=== PATIENT | male | born 1965 | race African-American/Black ===

== ENCOUNTER 2017-07-04 11:41 | Inpatient (IN) | payer OTHER ==
[2017-07-04 13:34] VITALS: BMI 19.5
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
[2017-07-04] MEDS ORDERED: IBUPROFEN 400 MG TABLET (FP) PO PRN (15:58)
[2017-07-04] MEDS ORDERED: MAGNESIUM HYDROX 2400MG/30ML ORAL SUSPENSION 30 ML CUP PO PRN (15:58)
[2017-07-04] MEDS ORDERED: hydrOXYzine PAMOATE 25 MG CAPSULE (FP) PO PRN (15:58)
[2017-07-04] MEDS ORDERED: MENTHOL/PHENOL 1 EACH UD MM PRN (15:58)
[2017-07-04] MEDS ORDERED: P-EPHED 60MG/TRIPROLIDI 2.5MG TABLET PO PRN (15:58)
[2017-07-04] MEDS ORDERED: guaiFENesin/D-METHORPHAN HB 10 ML UNIT-DOSE CUPS PO PRN (15:58)
[2017-07-04] MEDS ORDERED: MAGNESIUM CITRATE 300 ML BOTTLE PO PRN (15:58)
[2017-07-04] MEDS ORDERED: MAG HYDROX/AL HYDROX/SIMETH 30 ML UNIT-DOSE CUP PO PRN (15:58)
[2017-07-04] MEDS ORDERED: ALBUTEROL SO4 18 GM HFA INHALER IH PRN (16:06)
--- NOTE | 2017-07-04 16:10 | PN ---
BHS Progress Note Note: patient is non compliance with medication for hiv
[2017-07-04] MEDS ORDERED: METHADONE HCL 10 MG TABLET (FOR DETOX USE ONLY) PO ONE ×2 (16:30→23:00)
[2017-07-04] MEDS: diazePAM 5 MG TABLET PO PRN ×2 (17:03→22:32)
[2017-07-04] MEDS: THIAMINE HCL 100 MG TABLET (FP) PO SCH (22:30)
[2017-07-04 23:51] LABS: URINE APPEARANCE CLEAR; URINE BILIRUBIN NEGATIVE (NEGATIVE); URINE BLOOD NEGATIVE (NEGATIVE); URINE GLUCOSE (UA) 1+ (NEGATIVE); URINE KETONE NEGATIVE (NEGATIVE); URINE LEUK ESTERASE TRACE (NEGATIVE); URINE NITRITE NEGATIVE (NEGATIVE); URINE UROBILINOGEN 4.0 E.U/dl mg/dL (0.2-1.0)
[2017-07-04 23:52] LABS: URINE PROTEIN 1+ (NEGATIVE)
[2017-07-04 23:54] LABS: URINE COLOR YELLOW
[2017-07-04 23:56] LABS: EPI CELLS RARE /HPF (FEW); URINE MUCUS RARE
[2017-07-05] MEDS: ACETAMINOPHEN 325 MG TABLET (FP) PO PRN (05:32)
--- NOTE | 2017-07-05 09:14 | CONSULT ---
[facility] Psychiatric Consult - Data Date of interview: 07/05/17 Admission source: [facility] Identifying data: Pt. is a 51 year old single male, father of two, disabled, and homeless. This is patient's first admission to rehab. Pt. admitted to for opiate and cocaine dependence. Substance Abuse History: Following information confirmed with Mr. Shaw: Smoking Cessation. Smoking history: Current every day smoker. Have you smoked in the past 12 months: Yes. Aproximately how many cigarettes per day: 5. Hx Chewing Tobacco Use: No. Initiated information on smoking cessation: Yes. ' Breaking Loose' booklet given: 07/04/17. - Substance & Tx. History. Hx Alcohol Use: No. Hx Substance Use: Yes. Substance Use Type: Cocaine, Heroin. Hx Substance Use Treatment: Yes ([facility] 04/29 not completed). - Substances Abused. Heroin. Route: Injection. Frequency: Daily. Amount used: 7 bags. Age of first use: 20. Date of Last Use: 07/03/17. Crack. Route: Smoking. Frequency: 1-2 times per week. Amount used: $25. Age of first use: 20. Date of Last Use: 07/03/17 Medical History: Asthma, Hep C, and HIV Psychiatric History: Pt. denies h/o psychiatric hospitalization, suicide attempts, and outpatient care. Pt. c/o insomnia. Physical/Sexual Abuse/Trauma History: Denies. Mental Status Exam - Mental Status Exam Alert and Oriented to: Time, Place, Person Cognitive Function: Good Patient Appearance: Well Groomed Mood: Euthymic Affect: Mood Congruent Patient Behavior: Appropriate, Cooperative Speech Pattern: Appropriate Voice Loudness: Normal Thought Process: Goal Oriented Thought Disorder: Not Present Hallucinations: Denies Suicidal Ideation: Denies Homicidal Ideation: Denies Insight/Judgement: Poor Sleep: Poorly Appetite: Poor Muscle strength/Tone: Normal Gait/Station: Other (Did not observe patient's gait.) Psychiatric Findings - Problem List ([place] 1, 2,3) (1) Cocaine dependence, uncomplicated Current Visit: Yes Status: Acute (2) Nicotine dependence Current Visit: Yes Status: Acute (3) Opioid dependence with withdrawal Current Visit: Yes Status: Acute (4) Insomnia Current Visit: Yes Status: Acute - Initial Treatment Plan Initial Treatment Plan: Psychoeducation provided. Detoxification in progress. Ambien 10mg qhs ordered. Benefits and side effects (sleep walking) discussed. Verbal consent given. Will continue to monitor.
[2017-07-05] MEDS ORDERED: METHADONE HCL 10 MG TABLET (FOR DETOX USE ONLY) PO ONE (10:00)
[2017-07-05 10:14] LABS: HEMATOCRIT 30.8 % (35.4-49); HEMOGLOBIN 9.7 GM/dL (11.7-16.9); MCH 23.4 pg (25.7-33.7); MCHC 31.6 g/dl (32.0-35.9); MEAN CELL VOLUME 74.1 fl (80-96); MEAN PLT VOLUME 8.7 fl (7.5-11.1); PLATELET COUNT 218 K/MM3 (134-434); RBC 4.16 M/mm3 (4.00-5.60); RDW 15.7 % (11.9-15.9); WHITE BLOOD COUNT 2.6 K/mm3 (4.0-10.0)
[2017-07-05] MEDS: PRENATAL VITAMINS W/ FOLIC ACID TABLET (FP) PO SCH (10:16)
[2017-07-05 10:18] LABS: CHLORIDE 108 mmol/L (98-107); POTASSIUM 3.8 mmol/L (3.5-5.1); SODIUM 139 mmol/L (136-145)
[2017-07-05] MEDS: diazePAM 5 MG TABLET PO PRN ×2 (10:18→17:28)
[2017-07-05 10:46] LABS: ALK PHOS 157 U/L (45-117); ANION GAP 7 (8-16); BILIRUBIN,TOTAL 0.7 mg/dL (0.2-1.0); BLOOD UREA NITROGEN 11 mg/dL (7-18); CALCIUM 7.8 mg/dL (8.5-10.1); CO2 24 mmol/L (21-32); CREATININE 0.7 mg/dL (0.7-1.3); GLUCOSE,RANDOM 155 mg/dL (74-106); SGOT/AST 37 U/L (15-37); SGPT/ALT 29 U/L (12-78); TOT PROT 7.4 g/dl (6.4-8.2)
--- NOTE | 2017-07-05 14:57 | PN ---
S COWS - Scale Resting Pulse: 0= [place] 80 or Below Sweatin= Chills/Flushing Restless Observation: 3= Extraneous Movement Pupil Size: 0= Normal to Room Light Bone or Joint Aches: 4=Acute Joint/Muscle Pain Runny Nose/ Eye Tearin= Nasal Congestion GI Upset > 30mins: 0= None Tremor Observation of Outstretched Hands: 1= Tremor [place], Not Seen Yawning Observation: 1= 1-2x During Session Anxiety or Irritability: 2=Irritable/Anxious Goose Flesh Skin: 0=Smooth Skin COWS Score: 13 S Progress Note (SOAP) Subjective: ANXIETY,SWEATS,CHILLS. Objective: 07/05/17 14:53 Vital Signs Temperature 97.5 F L 07/05/17 13:26 Pulse Rate 73 07/05/17 13:26 Respiratory Rate 18 07/05/17 13:26 Blood Pressure 98/57 07/05/17 13:26 O2 Sat by Pulse Oximetry (%) Laboratory Last Values WBC 2.6 K/mm3 (4.0-10.0) L 07/05/17 07:00 RBC 4.16 M/mm3 (4.00-5.60) 07/05/17 07:00 Hgb 9.7 GM/dL (11.7-16.9) L 07/05/17 07:00 Hct 30.8 % (35.4-49) L 07/05/17 07:00 MCV 74.1 fl (80-96) L 07/05/17 07:00 MCH 23.4 pg (25.7-33.7) L 07/05/17 07:00 MCHC 31.6 g/dl (32.0-35.9) L 07/05/17 07:00 RDW 15.7 % (11.9-15.9) 07/05/17 07:00 Plt Count 218 K/MM3 (134-434) 07/05/17 07:00 MPV 8.7 fl (7.5-11.1) 07/05/17 07:00 Sodium 139 mmol/L (136-145) 07/05/17 07:00 Potassium 3.8 mmol/L (3.5-5.1) 07/05/17 07:00 Chloride 108 mmol/L (98-107) H 07/05/17 07:00 Carbon Dioxide 24 mmol/L (21-32) 07/05/17 07:00 Anion Gap 7 (8-16) L 07/05/17 07:00 BUN 11 mg/dL (7-18) 07/05/17 07:00 Creatinine 0.7 mg/dL (0.7-1.3) 07/05/17 07:00 Creat Clearance w eGFR > 60 (>60) 07/05/17 07:00 Random Glucose 155 mg/dL (74-106) H 07/05/17 07:00 Calcium 7.8 mg/dL (8.5-10.1) L 07/05/17 07:00 Total Bilirubin 0.7 mg/dL (0.2-1.0) 07/05/17 07:00 AST 37 U/L (15-37) 07/05/17 07:00 ALT 29 U/L (12-78) 07/05/17 07:00 Alkaline Phosphatase 157 U/L (45-117) H 07/05/17 07:00 Total Protein 7.4 g/dl (6.4-8.2) 07/05/17 07:00 Albumin 3.0 g/dl (3.4-5.0) L 07/05/17 07:00 Urine Color Yellow 07/04/17 23:40 Urine Appearance Clear 07/04/17 23:40 Urine pH 6.0 (5.0-8.0) 07/04/17 23:40 Ur Specific [place] 1.026 (1.001-1.035) 07/04/17 23:40 Urine Protein 1+ (NEGATIVE) H 07/04/17 23:40 Urine Glucose (UA) 1+ (NEGATIVE) H 07/04/17 23:40 Urine Ketones Negative (NEGATIVE) 07/04/17 23:40 Urine Blood Negative (NEGATIVE) 07/04/17 23:40 Urine Nitrite Negative (NEGATIVE) 07/04/17 23:40 Urine Bilirubin Negative (NEGATIVE) 07/04/17 23:40 Urine Urobilinogen 4.0 e.u/dl mg/dL (0.2-1.0) 07/04/17 23:40 Ur Leukocyte Esterase Trace (NEGATIVE) 07/04/17 23:40 Urine WBC (Auto) 9 /hpf (3-5) 07/04/17 23:40 Urine RBC (Auto) 4 /hpf (0-3) 07/04/17 23:40 Ur Epithelial Cells Rare /HPF (FEW) 07/04/17 23:40 Urine Mucus Rare 07/04/17 23:40 LABS NOTED Assessment: 07/05/17 14:54 WITHDRAWAL SX Plan: CONTINUE DETOX INCREASE PO FLUIDS REPEAT UA FEOSOL DIRECTED REPEAT CBC AND CMP ON 07/07/17
[2017-07-05] MEDS ORDERED: FERROUS SO4 325 MG TABLET (FP) PO ONE (14:58)
--- NOTE | 2017-07-05 16:13 | EKG ---
Test Reason : Blood Pressure : / mmHG Vent. Rate : 079 BPM Atrial Rate : 079 BPM P-R Int : 128 ms QRS Dur : 088 ms QT Int : 370 ms P-R-T Axes : 036 038 039 degrees QTc Int : 424 ms NORMAL SINUS RHYTHM NORMAL ECG NO PREVIOUS ECGS AVAILABLE Confirmed by DYLLAN URBINA MD ([id number]) on 07/05/2017 4:12:39 PM Referred By: Confirmed By:DYLLAN URBINA MD
[2017-07-05] MEDS: FERROUS SO4 325 MG TABLET (FP) PO SCH (17:27)
[2017-07-05] MEDS: EMTRICITABINE 200MG/TENOFOVIR 300MG PO SCH (19:02)
[2017-07-05] MEDS: LOPERAMIDE HCL 2 MG CAPSULE PO PRN (20:52)
[2017-07-05] MEDS: THIAMINE HCL 100 MG TABLET (FP) PO SCH (22:24)
[2017-07-05] MEDS: ZOLPIDEM TARTRATE 10 MG TABLET (PARK CARE ONLY) PO PRN (22:26)
[2017-07-06] MEDS: PRENATAL VITAMINS W/ FOLIC ACID TABLET (FP) PO SCH (09:20)
[2017-07-06] MEDS: diazePAM 5 MG TABLET PO PRN ×2 (09:20→17:33)
[2017-07-06] MEDS: FERROUS SO4 325 MG TABLET (FP) PO SCH ×2 (09:20→17:31)
[2017-07-06] MEDS ORDERED: METHADONE HCL 5 MG TABLET (FOR DETOX USE ONLY) PO ONE (10:00)
--- NOTE | 2017-07-06 10:13 | PN ---
BHS COWS - Scale Resting Pulse: 1= [place] 81-100 Sweatin= Chills/Flushing Restless Observation: 3= Extraneous Movement Pupil Size: 2= Moderately Dilated Bone or Joint Aches: 4=Acute Joint/Muscle Pain Runny Nose/ Eye Tearin= Nasal Congestion GI Upset > 30mins: 0= None Tremor Observation of Outstretched Hands: 1= Tremor [place], Not Seen Yawning Observation: 1= 1-2x During Session Anxiety or Irritability: 2=Irritable/Anxious Goose Flesh Skin: 0=Smooth Skin COWS Score: 16 BHS Progress Note (SOAP) Subjective: ANXIETY,IRRITABILITY, LOWER BACK AND LEG PAINS-TAKES PERCOCETS FOR PAIN AND MOTRIN "DONT DO ANYTHING", RESTLESSNESS, INTERMITTENT SLEEP Objective: 07/06/17 10:10 Vital Signs 07/06/17 07/06/17 07/06/17 03:30 06:12 09:50 Temperature 97.3 F L 97.6 F Pulse Rate 75 81 Respiratory 18 16 20 Rate Blood Pressure 102/64 98/65 Laboratory Last Values WBC 2.6 K/mm3 (4.0-10.0) L 07/05/17 07:00 RBC 4.16 M/mm3 (4.00-5.60) 07/05/17 07:00 Hgb 9.7 GM/dL (11.7-16.9) L 07/05/17 07:00 Hct 30.8 % (35.4-49) L 07/05/17 07:00 MCV 74.1 fl (80-96) L 07/05/17 07:00 MCH 23.4 pg (25.7-33.7) L 07/05/17 07:00 MCHC 31.6 g/dl (32.0-35.9) L 07/05/17 07:00 RDW 15.7 % (11.9-15.9) 07/05/17 07:00 Plt Count 218 K/MM3 (134-434) 07/05/17 07:00 MPV 8.7 fl (7.5-11.1) 07/05/17 07:00 Sodium 139 mmol/L (136-145) 07/05/17 07:00 Potassium 3.8 mmol/L (3.5-5.1) 07/05/17 07:00 Chloride 108 mmol/L (98-107) H 07/05/17 07:00 Carbon Dioxide 24 mmol/L (21-32) 07/05/17 07:00 Anion Gap 7 (8-16) L 07/05/17 07:00 BUN 11 mg/dL (7-18) 07/05/17 07:00 Creatinine 0.7 mg/dL (0.7-1.3) 07/05/17 07:00 Creat Clearance w eGFR > 60 (>60) 07/05/17 07:00 Random Glucose 155 mg/dL (74-106) H 07/05/17 07:00 Calcium 7.8 mg/dL (8.5-10.1) L 07/05/17 07:00 Total Bilirubin 0.7 mg/dL (0.2-1.0) 07/05/17 07:00 AST 37 U/L (15-37) 07/05/17 07:00 ALT 29 U/L (12-78) 07/05/17 07:00 Alkaline Phosphatase 157 U/L (45-117) H 07/05/17 07:00 Total Protein 7.4 g/dl (6.4-8.2) 07/05/17 07:00 Albumin 3.0 g/dl (3.4-5.0) L 07/05/17 07:00 Urine Color Yellow 07/04/17 23:40 Urine Appearance Clear 07/04/17 23:40 Urine pH 6.0 (5.0-8.0) 07/04/17 23:40 Ur Specific [place] 1.026 (1.001-1.035) 07/04/17 23:40 Urine Protein 1+ (NEGATIVE) H 07/04/17 23:40 Urine Glucose (UA) 1+ (NEGATIVE) H 07/04/17 23:40 Urine Ketones Negative (NEGATIVE) 07/04/17 23:40 Urine Blood Negative (NEGATIVE) 07/04/17 23:40 Urine Nitrite Negative (NEGATIVE) 07/04/17 23:40 Urine Bilirubin Negative (NEGATIVE) 07/04/17 23:40 Urine Urobilinogen 4.0 e.u/dl mg/dL (0.2-1.0) 07/04/17 23:40 Ur Leukocyte Esterase Trace (NEGATIVE) 07/04/17 23:40 Urine WBC (Auto) 9 /hpf (3-5) 07/04/17 23:40 Urine RBC (Auto) 4 /hpf (0-3) 07/04/17 23:40 Ur Epithelial Cells Rare /HPF (FEW) 07/04/17 23:40 Urine Mucus Rare 07/04/17 23:40 RPR Titer Nonreactive (NONREACTIVE) 07/05/17 07:00 REPEAT CBC ANC CMP RESULTS PENDING Assessment: 07/06/17 10:11 WITHDRAWAL SX Plan: CONTINUE DETOX NAPROSYN 500 MG PO BID FLEXERIL 10 MG PO TID D/C MOTRIN
[2017-07-06 10:33] LABS: BLOOD UREA NITROGEN 6 mg/dL (7-18); CHLORIDE 108 mmol/L (98-107); POTASSIUM 3.9 mmol/L (3.5-5.1); SODIUM 142 mmol/L (136-145)
[2017-07-06] MEDS: NAPROXEN 500 MG TABLET (FP) PO SCH ×2 (10:41→22:28)
[2017-07-06 11:02] LABS: ALBUMIN 2.6 g/dl (3.4-5.0); ALK PHOS 133 U/L (45-117); ANION GAP 13 (8-16); BILIRUBIN,TOTAL 0.3 mg/dL (0.2-1.0); CALCIUM 8.1 mg/dL (8.5-10.1); CO2 21 mmol/L (21-32); CREATININE 0.5 mg/dL (0.7-1.3); GLUCOSE,RANDOM 133 mg/dL (74-106); SGOT/AST 31 U/L (15-37); SGPT/ALT 30 U/L (12-78); TOT PROT 6.7 g/dl (6.4-8.2)
[2017-07-06] MEDS: CYCLOBENZAPRINE HCL 10 MG TABLET (FP) PO SCH ×2 (16:07→23:33)
[2017-07-06] MEDS: MEGESTROL ACETATE 400 MG/10 ML UNIT DOSE CUP PO SCH (17:26)
[2017-07-06] MEDS: ATAZANAVIR SULFATE/COBICISTAT (EVOTAZ) TABLET PO SCH (17:30)
[2017-07-06] MEDS: ZOLPIDEM TARTRATE 10 MG TABLET (PARK CARE ONLY) PO PRN (22:27)
[2017-07-06] MEDS: THIAMINE HCL 100 MG TABLET (FP) PO SCH (22:27)
[2017-07-06] MEDS: BUDESONIDE/FORMETEROL FUMARATE 160/4.5 mcg INHALER IH SCH (22:28)
[2017-07-07] MEDS: EMTRICITABINE 200MG/TENOFOVIR 300MG PO SCH ×2 (00:42→10:38)
[2017-07-07] MEDS: CYCLOBENZAPRINE HCL 10 MG TABLET (FP) PO SCH ×3 (05:44→22:49)
[2017-07-07] MEDS: FERROUS SO4 325 MG TABLET (FP) PO SCH ×2 (07:41→17:56)
[2017-07-07] MEDS ORDERED: METHADONE HCL 5 MG TABLET (FOR DETOX USE ONLY) PO ONE (10:00)
[2017-07-07 10:03] LABS: HEMATOCRIT 30.6 % (35.4-49); HEMOGLOBIN 9.6 GM/dL (11.7-16.9); MCH 23.3 pg (25.7-33.7); MCHC 31.3 g/dl (32.0-35.9); MEAN CELL VOLUME 74.5 fl (80-96); MEAN PLT VOLUME 8.2 fl (7.5-11.1); PLATELET COUNT 234 K/MM3 (134-434); RBC 4.11 M/mm3 (4.00-5.60); RDW 15.9 % (11.9-15.9); WHITE BLOOD COUNT 3.5 K/mm3 (4.0-10.0)
[2017-07-07] MEDS: BUDESONIDE/FORMETEROL FUMARATE 160/4.5 mcg INHALER IH SCH ×2 (10:37→22:50)
[2017-07-07] MEDS: NAPROXEN 500 MG TABLET (FP) PO SCH ×2 (10:37→22:49)
[2017-07-07] MEDS: PRENATAL VITAMINS W/ FOLIC ACID TABLET (FP) PO SCH (10:37)
[2017-07-07] MEDS: ATAZANAVIR SULFATE/COBICISTAT (EVOTAZ) TABLET PO SCH (10:38)
[2017-07-07] MEDS: MEGESTROL ACETATE 400 MG/10 ML UNIT DOSE CUP PO SCH (10:40)
[2017-07-07] MEDS: NICOTINE POLACRILEX 2 MG GUM BC PRN (10:41)
--- NOTE | 2017-07-07 18:04 | PN ---
BHS Progress Note (SOAP) Subjective: Stomach Cramping, Diarrhea, Fatigue. Objective: PT. A & O X 2 (UNCERTAIN ABOUT CURRENT DAY/ DATE). PT. OBSERVED AMBULATING ON UNIT. NO ACUTE DISTRESS. 07/07/17 18:03 Vital Signs Temperature 98.9 F 07/07/17 14:30 Pulse Rate 84 07/07/17 14:30 Respiratory Rate 18 07/07/17 14:30 Blood Pressure 109/60 07/07/17 14:30 O2 Sat by Pulse Oximetry (%) Laboratory Tests 07/04/17 07/05/17 07/05/17 23:40 07:00 07:00 WBC 2.6 L RBC 4.16 Hgb 9.7 L Hct 30.8 L MCV 74.1 L MCH 23.4 L MCHC 31.6 L RDW 15.7 Plt Count 218 MPV 8.7 Sodium 139 Potassium 3.8 Chloride 108 H Carbon Dioxide 24 Anion Gap 7 L BUN 11 Creatinine 0.7 Creat Clearance w eGFR > 60 Random Glucose 155 H Calcium 7.8 L Total Bilirubin 0.7 AST 37 ALT 29 Alkaline Phosphatase 157 H Total Protein 7.4 Albumin 3.0 L Urine Color Yellow Urine Appearance Clear Urine pH 6.0 Ur Specific [place] 1.026 Urine Protein 1+ H Urine Glucose (UA) 1+ H Urine Ketones Negative Urine Blood Negative Urine Nitrite Negative Urine Bilirubin Negative Urine Urobilinogen 4.0 e.u/dl Ur Leukocyte Esterase Trace Urine WBC (Auto) 9 Urine RBC (Auto) 4 Ur Epithelial Cells Rare Urine Mucus Rare RPR Titer 07/05/17 07/06/17 07/07/17 07:00 07:40 07:40 WBC 3.5 L D RBC 4.11 Hgb 9.6 L Hct 30.6 L MCV 74.5 L MCH 23.3 L MCHC 31.3 L RDW 15.9 Plt Count 234 MPV 8.2 Sodium 142 Potassium 3.9 Chloride 108 H Carbon Dioxide 21 Anion Gap 13 BUN 6 L D Creatinine 0.5 L D Creat Clearance w eGFR > 60 Random Glucose 133 H Calcium 8.1 L Total Bilirubin 0.3 D AST 31 ALT 30 Alkaline Phosphatase 133 H Total Protein 6.7 Albumin 2.6 L Urine Color Urine Appearance Urine pH Ur Specific [place] Urine Protein Urine Glucose (UA) Urine Ketones Urine Blood Urine Nitrite Urine Bilirubin Urine Urobilinogen Ur Leukocyte Esterase Urine WBC (Auto) Urine RBC (Auto) Ur Epithelial Cells Urine Mucus RPR Titer Nonreactive LABS NOTED. RESULTS OF REPEAT UA NOTED. 07/07/17 18:05 Assessment: 07/07/17 18:03 WITHDRAWAL SYMPTOMS. ANEMIA. 07/07/17 18:06 Plan: CONTINUE DETOX. INCREASE DAILY PO FLUID INTAKE.
[2017-07-07] MEDS: THIAMINE HCL 100 MG TABLET (FP) PO SCH (22:49)
[2017-07-07] MEDS: ZOLPIDEM TARTRATE 10 MG TABLET (PARK CARE ONLY) PO PRN (22:50)
[2017-07-08] MEDS: CYCLOBENZAPRINE HCL 10 MG TABLET (FP) PO SCH ×3 (05:26→22:09)
[2017-07-08] MEDS: FERROUS SO4 325 MG TABLET (FP) PO SCH ×2 (08:34→19:39)
[2017-07-08] MEDS: BUDESONIDE/FORMETEROL FUMARATE 160/4.5 mcg INHALER IH SCH ×2 (09:41→22:08)
[2017-07-08] MEDS: PRENATAL VITAMINS W/ FOLIC ACID TABLET (FP) PO SCH (09:41)
[2017-07-08] MEDS: ATAZANAVIR SULFATE/COBICISTAT (EVOTAZ) TABLET PO SCH (09:42)
[2017-07-08] MEDS: MEGESTROL ACETATE 400 MG/10 ML UNIT DOSE CUP PO SCH (09:42)
[2017-07-08] MEDS: EMTRICITABINE 200MG/TENOFOVIR 300MG PO SCH (09:42)
[2017-07-08] MEDS: NAPROXEN 500 MG TABLET (FP) PO SCH ×2 (09:43→22:08)
[2017-07-08] MEDS ORDERED: METHADONE HCL 10 MG TABLET (FOR DETOX USE ONLY) PO ONE (10:00)
--- NOTE | 2017-07-08 19:31 | PN ---
BHS Progress Note (SOAP) Subjective: diarrhea abd cramp Objective: 07/08/17 19:29 A & O x 3 R hand muscle impairment Vital Signs Temperature 98.9 F 07/08/17 18:04 Pulse Rate 81 07/08/17 18:04 Respiratory Rate 18 07/08/17 18:04 Blood Pressure 118/71 07/08/17 18:04 O2 Sat by Pulse Oximetry (%) Assessment: 07/08/17 19:30 withdrawal sx Plan: continue detox
[2017-07-08] MEDS: THIAMINE HCL 100 MG TABLET (FP) PO SCH (22:08)
[2017-07-09] MEDS ORDERED: TRIMETHOBENZAMIDE HCL 200MG/2ML INJ IM PRN (05:43)
[2017-07-09] MEDS ORDERED: METHADONE HCL 5 MG TABLET (FOR DETOX USE ONLY) PO ONE (06:00)
[2017-07-09] MEDS: CYCLOBENZAPRINE HCL 10 MG TABLET (FP) PO SCH ×3 (06:39→21:41)
[2017-07-09] MEDS: NAPROXEN 500 MG TABLET (FP) PO SCH ×2 (10:36→21:41)
[2017-07-09] MEDS: PRENATAL VITAMINS W/ FOLIC ACID TABLET (FP) PO SCH (10:37)
[2017-07-09] MEDS: ATAZANAVIR SULFATE/COBICISTAT (EVOTAZ) TABLET PO SCH (10:37)
[2017-07-09] MEDS: EMTRICITABINE 200MG/TENOFOVIR 300MG PO SCH (10:37)
[2017-07-09] MEDS: FERROUS SO4 325 MG TABLET (FP) PO SCH ×2 (10:37→20:24)
[2017-07-09] MEDS: BUDESONIDE/FORMETEROL FUMARATE 160/4.5 mcg INHALER IH SCH ×2 (10:37→21:42)
[2017-07-09] MEDS: MEGESTROL ACETATE 400 MG/10 ML UNIT DOSE CUP PO SCH (11:29)
--- NOTE | 2017-07-09 11:52 | DS ---
[facility] Detox Discharge Summary Admission Date: 07/04/17 Discharge Date: 07/09/17 - History Present History: Cocaine Dependence, Opioid Dependence Additional Comments: DETOX COMPLETED. ALERT O X 3. NAD. REFERRED TO REHAB TODAY. Pertinent Past History: SEE DX BELOW - Physical Exam Results Vital Signs: Vital Signs Temperature 97.7 F 07/09/17 10:00 Pulse Rate 80 07/09/17 10:00 Respiratory Rate 20 07/09/17 10:00 Blood Pressure 112/67 07/09/17 10:00 O2 Sat by Pulse Oximetry (%) Pertinent Admission Physical Exam Findings: WITHDRAWAL SX - Treatment Hospital Course: Detox Protocol Followed, Detoxed Safely, Responded well, Discharged Condition Good, Rehab Referral Accepted Patient has Accepted a Rehab Referral to: [facility] - Medication Discharge Medications: Ambulatory Orders Albuterol Sulfate Inhaler - [Ventolin Hfa Inhaler -] 2 inh PO Q4H PRN 07/04/17 Emtricitabine/Tenofovir [Truvada] 1 tab PO DAILY 07/04/17 Atazanavir Sulfate/Cobicistat [Evotaz 300 mg-150 mg Tablet] 1 each PO DAILY Budesonide/Formeterol Fumarate [SYMBICORT 160/4.5mcg -] 1 inh PO BID 07/06/17 Megestrol Acetate Oral Susp [Megace Liquid -] 400 mg PO DAILY 07/06/17 - Diagnosis (1) Asthma Current Visit: Yes Status: Chronic Qualifiers: Asthma severity: mild Asthma persistence: unspecified Asthma complication type: uncomplicated Qualified Code(s): J45.909 - Unspecified asthma, uncomplicated (2) Cocaine dependence, uncomplicated Current Visit: Yes Status: Acute (3) HIV (human immunodeficiency virus infection) Current Visit: Yes Status: Chronic (4) Opioid dependence with withdrawal Current Visit: Yes Status: Acute (5) 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
[2017-07-09] MEDS: LOPERAMIDE HCL 2 MG CAPSULE PO PRN (13:11)
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
[2017-07-09] MEDS: THIAMINE HCL 100 MG TABLET (FP) PO SCH (21:41)
[2017-07-10] MEDS: CYCLOBENZAPRINE HCL 10 MG TABLET (FP) PO SCH ×3 (07:01→21:14)
[2017-07-10] MEDS: FERROUS SO4 325 MG TABLET (FP) PO SCH ×2 (07:01→17:45)
[2017-07-10] MEDS: NAPROXEN 500 MG TABLET (FP) PO SCH ×2 (10:44→21:14)
[2017-07-10] MEDS: PRENATAL VITAMINS W/ FOLIC ACID TABLET (FP) PO SCH (10:44)
[2017-07-10] MEDS: MEGESTROL ACETATE 400 MG/10 ML UNIT DOSE CUP PO SCH (10:45)
[2017-07-10] MEDS: EMTRICITABINE 200MG/TENOFOVIR 300MG PO SCH (10:46)
[2017-07-10] MEDS: ATAZANAVIR SULFATE/COBICISTAT (EVOTAZ) TABLET PO SCH (10:49)
[2017-07-10] MEDS: BUDESONIDE/FORMETEROL FUMARATE 160/4.5 mcg INHALER IH SCH ×2 (10:49→21:14)
[2017-07-10] MEDS: LOPERAMIDE HCL 2 MG CAPSULE PO PRN (19:17)
[2017-07-10] MEDS: THIAMINE HCL 100 MG TABLET (FP) PO SCH (21:14)
[2017-07-11] MEDS: CYCLOBENZAPRINE HCL 10 MG TABLET (FP) PO SCH ×3 (06:33→21:37)
[2017-07-11] MEDS: FERROUS SO4 325 MG TABLET (FP) PO SCH ×2 (07:02→16:45)
[2017-07-11] MEDS: NAPROXEN 500 MG TABLET (FP) PO SCH ×2 (10:41→21:37)
[2017-07-11] MEDS: EMTRICITABINE 200MG/TENOFOVIR 300MG PO SCH (10:42)
[2017-07-11] MEDS: MEGESTROL ACETATE 400 MG/10 ML UNIT DOSE CUP PO SCH (10:43)
[2017-07-11] MEDS: ATAZANAVIR SULFATE/COBICISTAT (EVOTAZ) TABLET PO SCH (10:43)
[2017-07-11] MEDS: BUDESONIDE/FORMETEROL FUMARATE 160/4.5 mcg INHALER IH SCH ×2 (10:44→21:37)
[2017-07-11] MEDS: PRENATAL VITAMINS W/ FOLIC ACID TABLET (FP) PO SCH (10:44)
[2017-07-11] MEDS: THIAMINE HCL 100 MG TABLET (FP) PO SCH (21:37)
[2017-07-12] MEDS: CYCLOBENZAPRINE HCL 10 MG TABLET (FP) PO SCH ×3 (06:30→21:33)
[2017-07-12] MEDS: FERROUS SO4 325 MG TABLET (FP) PO SCH ×2 (07:28→18:02)
[2017-07-12] MEDS: PRENATAL VITAMINS W/ FOLIC ACID TABLET (FP) PO SCH (10:37)
[2017-07-12] MEDS: EMTRICITABINE 200MG/TENOFOVIR 300MG PO SCH (10:37)
[2017-07-12] MEDS: NAPROXEN 500 MG TABLET (FP) PO SCH (10:37)
[2017-07-12] MEDS: MEGESTROL ACETATE 400 MG/10 ML UNIT DOSE CUP PO SCH (10:38)
[2017-07-12] MEDS: ATAZANAVIR SULFATE/COBICISTAT (EVOTAZ) TABLET PO SCH (10:38)
[2017-07-12] MEDS: BUDESONIDE/FORMETEROL FUMARATE 160/4.5 mcg INHALER IH SCH ×2 (10:40→21:34)
--- NOTE | 2017-07-12 11:58 | PN ---
Psychiatric Progress Note Vital Signs: Vital Signs Period Temp Pulse Resp BP Sys/Albrecht Pulse Ox Last 24 Hr 98.2 F 97 18-18 111/71 Current Medications: Active Medications Generic Name Dose Route Start Last Admin Trade Name Freq PRN Reason Stop Dose Admin Acetaminophen 650 mg 07/04/17 15:58 07/05/17 05:32 Tylenol - PO 650 mg Q4H PRN Administration FEVER Al Hydroxide/Mg Hydroxide 30 ml 07/04/17 15:58 Mylanta Oral Suspension - PO Q6H PRN DYSPEPSIA Albuterol Sulfate 2 puff 07/04/17 16:06 Ventolin Hfa Inhaler - IH Q4H PRN ASTHMA Budesonide/Formoterol Fumarate 1 puff 07/06/17 22:00 07/12/17 10:40 Symbicort 160/4.5mcg - IH Not Given BID [facility] Cyclobenzaprine HCl 10 mg 07/06/17 14:00 07/12/17 06:30 Flexeril - PO 10 mg TID ISAIAS Administration Emtricitabine/Tenofovir 1 tab 07/07/17 10:00 07/12/17 10:37 Truvada PO 1 tab DAILY [facility] Administration Eucalyptus/Menthol/Phenol/Sorbitol 1 each 07/04/17 15:58 Cepastat Lozenge - MM Q4H PRN SORE THROAT Ferrous Sulfate 325 mg 07/05/17 17:30 07/12/17 07:28 Feosol - PO 325 mg BIDWM [facility] Administration Guaifenesin 10 ml 07/04/17 15:58 Robitussin Dm - PO Q6H PRN COUGH Hydroxyzine Pamoate 25 mg 07/09/17 15:34 Vistaril - PO Q4H PRN ANXIETY Loperamide HCl 4 mg 07/04/17 15:58 07/10/17 19:17 Imodium - PO 4 mg Q6H PRN Administration DIARRHEA Magnesium Citrate 300 ml 07/04/17 15:58 Citroma - PO Q48H PRN CONSTIPATION Magnesium Hydroxide 30 ml 07/04/17 15:58 Milk Of Magnesia - PO DAILY PRN CONSTIPATION Megestrol Acetate 400 mg 07/06/17 16:30 07/12/17 10:38 Megace Oral Suspension - PO 400 mg DAILY [facility] Administration Naproxen 500 mg 07/06/17 10:00 07/12/17 10:37 Naprosyn - PO 500 mg BID ISAIAS Administration Nicotine Polacrilex 2 mg 07/04/17 15:58 07/07/17 10:41 Nicorette Gum - BC 2 mg Q2H PRN Administration NICOTINE REPLACEMENT RX Multivit/Folic Acid/Iron 1 tab 07/05/17 10:00 07/12/17 10:37 Vitamins (Sjr) - PO 1 tab DAILY ISAIAS Administration Pseudoephedrine/Triprolidine 1 combo 07/04/17 15:58 Actifed - PO TID PRN NASAL CONGESTION Simethicone 80 mg 07/10/17 20:50 Mylicon - PO Q4H PRN GAS Thiamine HCl 100 mg 07/04/17 22:00 07/11/17 21:37 Vitamin B1 - PO 100 mg HS ISAIAS Administration Trimethobenzamide HCl 200 mg 07/09/17 05:43 07/09/17 06:24 Tigan Injection - IM 200 mg Q8H PRN Administration NAUSEA Psychiatric Treatment Plan - Problem List (1) Cocaine dependence Current Visit: Yes (2) Opioid dependence Current Visit: Yes (3) Substance-induced anxiety disorder Current Visit: Yes (4) Nicotine dependence Current Visit: Yes Qualifiers: Nicotine product type: cigarettes Substance use status: uncomplicated Qualified Code(s): F17.210 - Nicotine dependence, cigarettes, uncomplicated (5) HIV (human immunodeficiency virus infection) Current Visit: Yes
--- NOTE | 2017-07-12 12:38 | PN ---
S Progress Note (SOAP) Subjective: fatigue, depression, body aches, fevers chillss, nause, diarrhea Objective: 07/12/17 12:35 Vital Signs - 24 hr 07/12/17 07/12/17 07/12/17 00:30 03:30 07:08 Temperature 98.2 F Pulse Rate 97 H Respiratory 18 18 18 Rate Blood Pressure 111/71 Laboratory Tests 07/04/17 07/05/17 07/05/17 23:40 07:00 07:00 WBC 2.6 L RBC 4.16 Hgb 9.7 L Hct 30.8 L MCV 74.1 L MCH 23.4 L MCHC 31.6 L RDW 15.7 Plt Count 218 MPV 8.7 Sodium 139 Potassium 3.8 Chloride 108 H Carbon Dioxide 24 Anion Gap 7 L BUN 11 Creatinine 0.7 Creat Clearance w eGFR > 60 POC Glucometer Random Glucose 155 H Calcium 7.8 L Total Bilirubin 0.7 AST 37 ALT 29 Alkaline Phosphatase 157 H Total Protein 7.4 Albumin 3.0 L Urine Color Yellow Urine Appearance Clear Urine pH 6.0 Ur Specific [place] 1.026 Urine Protein 1+ H Urine Glucose (UA) 1+ H Urine Ketones Negative Urine Blood Negative Urine Nitrite Negative Urine Bilirubin Negative Urine Urobilinogen 4.0 e.u/dl Ur Leukocyte Esterase Trace Urine WBC (Auto) 9 Urine RBC (Auto) 4 Ur Epithelial Cells Rare Urine Mucus Rare RPR Titer 07/05/17 07/06/17 07/07/17 07:00 07:40 07:40 WBC 3.5 L D RBC 4.11 Hgb 9.6 L Hct 30.6 L MCV 74.5 L MCH 23.3 L MCHC 31.3 L RDW 15.9 Plt Count 234 MPV 8.2 Sodium 142 Potassium 3.9 Chloride 108 H Carbon Dioxide 21 Anion Gap 13 BUN 6 L D Creatinine 0.5 L D Creat Clearance w eGFR > 60 POC Glucometer Random Glucose 133 H Calcium 8.1 L Total Bilirubin 0.3 D AST 31 ALT 30 Alkaline Phosphatase 133 H Total Protein 6.7 Albumin 2.6 L Urine Color Urine Appearance Urine pH Ur Specific [place] Urine Protein Urine Glucose (UA) Urine Ketones Urine Blood Urine Nitrite Urine Bilirubin Urine Urobilinogen Ur Leukocyte Esterase Urine WBC (Auto) Urine RBC (Auto) Ur Epithelial Cells Urine Mucus RPR Titer Nonreactive 07/11/17 07/12/17 16:43 06:30 WBC RBC Hgb Hct MCV MCH MCHC RDW Plt Count MPV Sodium Potassium Chloride Carbon Dioxide Anion Gap BUN Creatinine Creat Clearance w eGFR POC Glucometer 212 197 Random Glucose Calcium Total Bilirubin AST ALT Alkaline Phosphatase Total Protein Albumin Urine Color Urine Appearance Urine pH Ur Specific [place] Urine Protein Urine Glucose (UA) Urine Ketones Urine Blood Urine Nitrite Urine Bilirubin Urine Urobilinogen Ur Leukocyte Esterase Urine WBC (Auto) Urine RBC (Auto) Ur Epithelial Cells Urine Mucus RPR Titer Assessment: 07/12/17 12:36 protracted opioid withdrwal, anemai and malnutirtion in HIV+ patient , will start suboxone and adjust dose as tolearted, will speqk with counselor to find program in [place] where he lives, if no improvement on suboxone will send to ED for evaluation of ayana 07/12/17 12:37
[2017-07-12] MEDS ORDERED: ONDANSETRON *ODT* 4 MG TABLET SL ONE (12:42)
[2017-07-12] MEDS ORDERED: ONDANSETRON *ODT* 4 MG TABLET SL PRN (12:43)
[2017-07-12] MEDS ORDERED: NICOTINE 14 MG/24 HOURS TOPICAL PATCH TD SCH (12:45)
[2017-07-12] MEDS ORDERED: BUPRENORPHINE/NALOXONE 2 MG/0.5 MG FILM PACKET SL ONE ×2 (12:53→18:00)
[2017-07-12] MEDS: NICOTINE POLACRILEX 2 MG GUM BC PRN (13:02)
[2017-07-12] MEDS: CLOTRIMAZOLE/BETAMET DIPROP TOPICAL CREAM 45 GM TUBE TP SCH ×2 (13:04→21:35)
[2017-07-12] MEDS ORDERED: INSULIN (NOVOLOG) ASPART 100 UNITS/ML 10ML VIAL ONE (18:01)
[2017-07-12] MEDS: INSULIN SLIDING SCALE (NOVOLOG) 1 VIAL SQ SCH (18:05)
[2017-07-12] MEDS: THIAMINE HCL 100 MG TABLET (FP) PO SCH (21:34)
[2017-07-12 21:47] LABS: URINE APPEARANCE CLOUDY; URINE BILIRUBIN NEGATIVE (NEGATIVE); URINE BLOOD NEGATIVE (NEGATIVE); URINE COLOR AMBER; URINE GLUCOSE (UA) 3+ (NEGATIVE); URINE KETONE TRACE (NEGATIVE); URINE NITRITE NEGATIVE (NEGATIVE); URINE UROBILINOGEN 4.0 E.U/dl mg/dL (0.2-1.0)
[2017-07-12 21:49] LABS: URINE LEUK ESTERASE 3+ (NEGATIVE); URINE PROTEIN 2+ (NEGATIVE)
[2017-07-12 21:51] LABS: EPI CELLS RARE /HPF (FEW); URINE MUCUS MODERATE
[2017-07-13] MEDS: CYCLOBENZAPRINE HCL 10 MG TABLET (FP) PO SCH ×3 (06:11→21:47)
[2017-07-13] MEDS: FERROUS SO4 325 MG TABLET (FP) PO SCH ×2 (07:08→18:09)
[2017-07-13] MEDS: INSULIN SLIDING SCALE (NOVOLOG) 1 VIAL SQ SCH ×2 (07:09→17:39)
[2017-07-13] MEDS: BUPRENORPHINE/NALOXONE 8 MG/2 MG FILM PACKET SL SCH (10:45)
[2017-07-13] MEDS: PRENATAL VITAMINS W/ FOLIC ACID TABLET (FP) PO SCH (10:45)
[2017-07-13] MEDS: MEGESTROL ACETATE 400 MG/10 ML UNIT DOSE CUP PO SCH (10:45)
[2017-07-13] MEDS: ATAZANAVIR SULFATE/COBICISTAT (EVOTAZ) TABLET PO SCH (10:46)
[2017-07-13] MEDS: EMTRICITABINE 200MG/TENOFOVIR 300MG PO SCH (10:47)
[2017-07-13] MEDS: BUDESONIDE/FORMETEROL FUMARATE 160/4.5 mcg INHALER IH SCH ×2 (10:48→21:47)
[2017-07-13] MEDS: CLOTRIMAZOLE/BETAMET DIPROP TOPICAL CREAM 45 GM TUBE TP SCH ×2 (10:50→21:48)
[2017-07-13] MEDS: ACETAMINOPHEN 325 MG TABLET (FP) PO PRN (18:13)
[2017-07-13] MEDS: THIAMINE HCL 100 MG TABLET (FP) PO SCH (21:47)
[2017-07-14] MEDS: CYCLOBENZAPRINE HCL 10 MG TABLET (FP) PO SCH ×3 (06:47→21:39)
[2017-07-14] MEDS: INSULIN SLIDING SCALE (NOVOLOG) 1 VIAL SQ SCH ×2 (06:47→16:37)
[2017-07-14] MEDS: FERROUS SO4 325 MG TABLET (FP) PO SCH ×2 (07:31→17:44)
[2017-07-14] MEDS: PRENATAL VITAMINS W/ FOLIC ACID TABLET (FP) PO SCH (10:31)
[2017-07-14] MEDS: MEGESTROL ACETATE 400 MG/10 ML UNIT DOSE CUP PO SCH (10:31)
[2017-07-14] MEDS: BUPRENORPHINE/NALOXONE 8 MG/2 MG FILM PACKET SL SCH (10:33)
[2017-07-14] MEDS: ATAZANAVIR SULFATE/COBICISTAT (EVOTAZ) TABLET PO SCH (10:33)
[2017-07-14] MEDS: BUDESONIDE/FORMETEROL FUMARATE 160/4.5 mcg INHALER IH SCH ×2 (10:34→21:39)
[2017-07-14] MEDS: EMTRICITABINE 200MG/TENOFOVIR 300MG PO SCH (10:34)
[2017-07-14] MEDS: CLOTRIMAZOLE/BETAMET DIPROP TOPICAL CREAM 45 GM TUBE TP SCH ×2 (10:34→21:39)
[2017-07-14] MEDS: LOPERAMIDE HCL 2 MG CAPSULE PO PRN ×2 (14:16→21:39)
[2017-07-14] MEDS: THIAMINE HCL 100 MG TABLET (FP) PO SCH (21:39)
[2017-07-14] MEDS: hydrOXYzine PAMOATE 25 MG CAPSULE (FP) PO PRN (21:40)
[2017-07-15] MEDS: INSULIN SLIDING SCALE (NOVOLOG) 1 VIAL SQ SCH ×2 (06:36→16:52)
[2017-07-15] MEDS: CYCLOBENZAPRINE HCL 10 MG TABLET (FP) PO SCH ×3 (06:36→21:36)
[2017-07-15] MEDS: LOPERAMIDE HCL 2 MG CAPSULE PO PRN (06:38)
[2017-07-15] MEDS: FERROUS SO4 325 MG TABLET (FP) PO SCH ×2 (07:00→16:53)
[2017-07-15] MEDS ORDERED: INSULIN (NOVOLOG) ASPART 100 UNITS/ML 10ML VIAL ONE ×2 (07:10→17:04)
[2017-07-15] MEDS: PRENATAL VITAMINS W/ FOLIC ACID TABLET (FP) PO SCH (10:41)
[2017-07-15] MEDS: BUDESONIDE/FORMETEROL FUMARATE 160/4.5 mcg INHALER IH SCH ×2 (10:42→21:36)
[2017-07-15] MEDS: CLOTRIMAZOLE/BETAMET DIPROP TOPICAL CREAM 45 GM TUBE TP SCH ×2 (10:42→21:36)
[2017-07-15] MEDS: ATAZANAVIR SULFATE/COBICISTAT (EVOTAZ) TABLET PO SCH (10:42)
[2017-07-15] MEDS: MEGESTROL ACETATE 400 MG/10 ML UNIT DOSE CUP PO SCH (10:42)
[2017-07-15] MEDS: EMTRICITABINE 200MG/TENOFOVIR 300MG PO SCH (10:43)
[2017-07-15] MEDS: BUPRENORPHINE/NALOXONE 8 MG/2 MG FILM PACKET SL SCH (10:44)
[2017-07-15] MEDS: hydrOXYzine PAMOATE 25 MG CAPSULE (FP) PO PRN (21:36)
[2017-07-15] MEDS: THIAMINE HCL 100 MG TABLET (FP) PO SCH (21:36)
[2017-07-16] MEDS: LOPERAMIDE HCL 2 MG CAPSULE PO PRN (03:15)
[2017-07-16] MEDS: CYCLOBENZAPRINE HCL 10 MG TABLET (FP) PO SCH ×3 (06:39→21:38)
[2017-07-16] MEDS: INSULIN SLIDING SCALE (NOVOLOG) 1 VIAL SQ SCH ×2 (06:40→17:04)
[2017-07-16] MEDS: FERROUS SO4 325 MG TABLET (FP) PO SCH ×2 (07:04→18:17)
[2017-07-16] MEDS: PRENATAL VITAMINS W/ FOLIC ACID TABLET (FP) PO SCH (10:29)
[2017-07-16] MEDS: ATAZANAVIR SULFATE/COBICISTAT (EVOTAZ) TABLET PO SCH (10:29)
[2017-07-16] MEDS: BUPRENORPHINE/NALOXONE 8 MG/2 MG FILM PACKET SL SCH (10:29)
[2017-07-16] MEDS: MEGESTROL ACETATE 400 MG/10 ML UNIT DOSE CUP PO SCH (10:29)
[2017-07-16] MEDS: CLOTRIMAZOLE/BETAMET DIPROP TOPICAL CREAM 45 GM TUBE TP SCH ×2 (10:30→21:38)
[2017-07-16] MEDS: EMTRICITABINE 200MG/TENOFOVIR 300MG PO SCH (10:31)
[2017-07-16] MEDS: BUDESONIDE/FORMETEROL FUMARATE 160/4.5 mcg INHALER IH SCH ×2 (11:09→21:38)
[2017-07-16 14:52] LABS: HEMATOCRIT 35.3 % (35.4-49); HEMOGLOBIN 11.6 GM/dL (11.7-16.9); MEAN CELL VOLUME 75.9 fl (80-96); MEAN PLT VOLUME 8.7 fl (7.5-11.1); PLATELET COUNT 335 K/MM3 (134-434); RBC 4.66 M/mm3 (4.00-5.60); RDW 18.2 % (11.9-15.9)
[2017-07-16 15:02] LABS: ALBUMIN 2.9 g/dl (3.4-5.0); ALK PHOS 134 U/L (45-117); ANION GAP 13 (8-16); BILIRUBIN,TOTAL 0.8 mg/dL (0.2-1.0); BLOOD UREA NITROGEN 10 mg/dL (7-18); CALCIUM 8.1 mg/dL (8.5-10.1); CHLORIDE 103 mmol/L (98-107); CO2 22 mmol/L (21-32); CREATININE 0.6 mg/dL (0.7-1.3); GLUCOSE,RANDOM 193 mg/dL (74-106); POTASSIUM 3.9 mmol/L (3.5-5.1); SGOT/AST 30 U/L (15-37); SGPT/ALT 44 U/L (12-78); SODIUM 138 mmol/L (136-145); TOT PROT 7.7 g/dl (6.4-8.2)
--- NOTE | 2017-07-16 16:05 | PN ---
[facility] Progress Note Note: Vital Signs Temperature 98.9 F 07/16/17 07:12 Pulse Rate 88 07/16/17 07:12 Respiratory Rate 18 07/16/17 07:12 Blood Pressure 129/72 07/16/17 07:12 O2 Sat by Pulse Oximetry (%) Patient with multiple loose bowels. Patient has taken Immodium with no relief, was evalauted by dietary. One time dose of Lomotil ordered Increase fluids Continue to monitor
[2017-07-16] MEDS ORDERED: DIPHENOXYLATE 2.5/ATROPINE.025 1 COMBO TABLET PO ONE (17:15)
[2017-07-16 19:34] LABS: PLATELET ESTIMATE ADEQUATE
[2017-07-16] MEDS: THIAMINE HCL 100 MG TABLET (FP) PO SCH (21:38)
[2017-07-17] MEDS: INSULIN SLIDING SCALE (NOVOLOG) 1 VIAL SQ SCH ×2 (06:09→16:52)
[2017-07-17] MEDS: CYCLOBENZAPRINE HCL 10 MG TABLET (FP) PO SCH ×3 (06:09→21:36)
[2017-07-17] MEDS ORDERED: INSULIN (NOVOLOG) ASPART 100 UNITS/ML 10ML VIAL ONE ×2 (06:28→16:49)
[2017-07-17] MEDS: FERROUS SO4 325 MG TABLET (FP) PO SCH ×2 (07:38→16:51)
[2017-07-17] MEDS: ATAZANAVIR SULFATE/COBICISTAT (EVOTAZ) TABLET PO SCH (10:26)
[2017-07-17] MEDS: BUDESONIDE/FORMETEROL FUMARATE 160/4.5 mcg INHALER IH SCH ×2 (10:27→21:35)
[2017-07-17] MEDS: BUPRENORPHINE/NALOXONE 8 MG/2 MG FILM PACKET SL SCH (10:27)
[2017-07-17] MEDS: PRENATAL VITAMINS W/ FOLIC ACID TABLET (FP) PO SCH (10:27)
[2017-07-17] MEDS: MEGESTROL ACETATE 400 MG/10 ML UNIT DOSE CUP PO SCH (10:27)
[2017-07-17] MEDS: EMTRICITABINE 200MG/TENOFOVIR 300MG PO SCH (10:27)
[2017-07-17] MEDS: CLOTRIMAZOLE/BETAMET DIPROP TOPICAL CREAM 45 GM TUBE TP SCH ×2 (10:29→21:35)
--- NOTE | 2017-07-17 15:01 | PN ---
[facility] Progress Note (SOAP) Subjective: c/o continued diarrhea, cravings, desire to use but much better on 8mg suboxoen , pain r arm, neuropathic 2/2 trauma Objective: 07/17/17 14:59 Vital Signs - 24 hr 07/17/17 07/17/17 07/17/17 00:30 03:30 06:58 Temperature 98.8 F Pulse Rate 89 Respiratory 18 18 16 Rate Blood Pressure 112/74 Laboratory Tests 07/04/17 07/05/17 07/05/17 23:40 07:00 07:00 WBC 2.6 L RBC 4.16 Hgb 9.7 L Hct 30.8 L MCV 74.1 L MCH 23.4 L MCHC 31.6 L RDW 15.7 Plt Count 218 MPV 8.7 Neutrophils % Neutrophils % (Manual) Band Neutrophils % Lymphocytes % Lymphocytes % (Manual) Monocytes % Monocytes % (Manual) Eosinophils % Eosinophils % (Manual) Basophils % Platelet Estimate Sodium 139 Potassium 3.8 Chloride 108 H Carbon Dioxide 24 Anion Gap 7 L BUN 11 Creatinine 0.7 Creat Clearance w eGFR > 60 POC Glucometer Random Glucose 155 H Calcium 7.8 L Total Bilirubin 0.7 AST 37 ALT 29 Alkaline Phosphatase 157 H Total Protein 7.4 Albumin 3.0 L Urine Color Yellow Urine Appearance Clear Urine pH 6.0 Ur Specific [place] 1.026 Urine Protein 1+ H Urine Glucose (UA) 1+ H Urine Ketones Negative Urine Blood Negative Urine Nitrite Negative Urine Bilirubin Negative Urine Urobilinogen 4.0 e.u/dl Ur Leukocyte Esterase Trace Urine WBC (Auto) 9 Urine RBC (Auto) 4 Ur Epithelial Cells Rare Urine Mucus Rare RPR Titer 07/05/17 07/06/17 07/07/17 07:00 07:40 07:40 WBC 3.5 L D RBC 4.11 Hgb 9.6 L Hct 30.6 L MCV 74.5 L MCH 23.3 L MCHC 31.3 L RDW 15.9 Plt Count 234 MPV 8.2 Neutrophils % Neutrophils % (Manual) Band Neutrophils % Lymphocytes % Lymphocytes % (Manual) Monocytes % Monocytes % (Manual) Eosinophils % Eosinophils % (Manual) Basophils % Platelet Estimate Sodium 142 Potassium 3.9 Chloride 108 H Carbon Dioxide 21 Anion Gap 13 BUN 6 L D Creatinine 0.5 L D Creat Clearance w eGFR > 60 POC Glucometer Random Glucose 133 H Calcium 8.1 L Total Bilirubin 0.3 D AST 31 ALT 30 Alkaline Phosphatase 133 H Total Protein 6.7 Albumin 2.6 L Urine Color Urine Appearance Urine pH Ur Specific [place] Urine Protein Urine Glucose (UA) Urine Ketones Urine Blood Urine Nitrite Urine Bilirubin Urine Urobilinogen Ur Leukocyte Esterase Urine WBC (Auto) Urine RBC (Auto) Ur Epithelial Cells Urine Mucus RPR Titer Nonreactive 07/11/17 07/12/17 07/12/17 16:43 06:30 17:08 WBC RBC Hgb Hct MCV MCH MCHC RDW Plt Count MPV Neutrophils % Neutrophils % (Manual) Band Neutrophils % Lymphocytes % Lymphocytes % (Manual) Monocytes % Monocytes % (Manual) Eosinophils % Eosinophils % (Manual) Basophils % Platelet Estimate Sodium Potassium Chloride Carbon Dioxide Anion Gap BUN Creatinine Creat Clearance w eGFR POC Glucometer 212 197 324 Random Glucose Calcium Total Bilirubin AST ALT Alkaline Phosphatase Total Protein Albumin Urine Color Urine Appearance Urine pH Ur Specific [place] Urine Protein Urine Glucose (UA) Urine Ketones Urine Blood Urine Nitrite Urine Bilirubin Urine Urobilinogen Ur Leukocyte Esterase Urine WBC (Auto) Urine RBC (Auto) Ur Epithelial Cells Urine Mucus RPR Titer 07/12/17 07/13/17 07/13/17 21:00 06:11 17:19 WBC RBC Hgb Hct MCV MCH MCHC RDW Plt Count MPV Neutrophils % Neutrophils % (Manual) Band Neutrophils % Lymphocytes % Lymphocytes % (Manual) Monocytes % Monocytes % (Manual) Eosinophils % Eosinophils % (Manual) Basophils % Platelet Estimate Sodium Potassium Chloride Carbon Dioxide Anion Gap BUN Creatinine Creat Clearance w eGFR POC Glucometer 130 114 Random Glucose Calcium Total Bilirubin AST ALT Alkaline Phosphatase Total Protein Albumin Urine Color Sherri Urine Appearance Cloudy Urine pH 5.0 Ur Specific [place] 1.033 Urine Protein 2+ H Urine Glucose (UA) 3+ H Urine Ketones Trace H Urine Blood Negative Urine Nitrite Negative Urine Bilirubin Negative Urine Urobilinogen 4.0 e.u/dl Ur Leukocyte Esterase 3+ H Urine WBC (Auto) 191 Urine RBC (Auto) 138 Ur Epithelial Cells Rare Urine Mucus Moderate RPR Titer 07/14/17 07/14/17 07/15/17 06:46 16:35 06:35 WBC RBC Hgb Hct MCV MCH MCHC RDW Plt Count MPV Neutrophils % Neutrophils % (Manual) Band Neutrophils % Lymphocytes % Lymphocytes % (Manual) Monocytes % Monocytes % (Manual) Eosinophils % Eosinophils % (Manual) Basophils % Platelet Estimate Sodium Potassium Chloride Carbon Dioxide Anion Gap BUN Creatinine Creat Clearance w eGFR POC Glucometer 144 190 166 Random Glucose Calcium Total Bilirubin AST ALT Alkaline Phosphatase Total Protein Albumin Urine Color Urine Appearance Urine pH Ur Specific [place] Urine Protein Urine Glucose (UA) Urine Ketones Urine Blood Urine Nitrite Urine Bilirubin Urine Urobilinogen Ur Leukocyte Esterase Urine WBC (Auto) Urine RBC (Auto) Ur Epithelial Cells Urine Mucus RPR Titer 07/15/17 07/16/17 07/16/17 16:52 06:39 08:30 WBC 6.0 D RBC 4.66 Hgb 11.6 L D Hct 35.3 L D MCV 75.9 L MCH 25.0 L MCHC 33.0 RDW 18.2 H D Plt Count 335 D MPV 8.7 Neutrophils % Sleeve Presser Operator Neutrophils % (Manual) 61.0 Band Neutrophils % 3.0 Lymphocytes % Sleeve Presser Operator Lymphocytes % (Manual) 22.0 Monocytes % Sleeve Presser Operator Monocytes % (Manual) 10 Eosinophils % Sleeve Presser Operator Eosinophils % (Manual) 4.0 Basophils % Sleeve Presser Operator Platelet Estimate Adequate Sodium Potassium Chloride Carbon Dioxide Anion Gap BUN Creatinine Creat Clearance w eGFR POC Glucometer 269 147 Random Glucose Calcium Total Bilirubin AST ALT Alkaline Phosphatase Total Protein Albumin Urine Color Urine Appearance Urine pH Ur Specific [place] Urine Protein Urine Glucose (UA) Urine Ketones Urine Blood Urine Nitrite Urine Bilirubin Urine Urobilinogen Ur Leukocyte Esterase Urine WBC (Auto) Urine RBC (Auto) Ur Epithelial Cells Urine Mucus RPR Titer 07/16/17 07/16/17 07/17/17 08:30 17:03 06:08 WBC RBC Hgb Hct MCV MCH MCHC RDW Plt Count MPV Neutrophils % Neutrophils % (Manual) Band Neutrophils % Lymphocytes % Lymphocytes % (Manual) Monocytes % Monocytes % (Manual) Eosinophils % Eosinophils % (Manual) Basophils % Platelet Estimate Sodium 138 Potassium 3.9 Chloride 103 Carbon Dioxide 22 Anion Gap 13 BUN 10 D Creatinine 0.6 L Creat Clearance w eGFR > 60 POC Glucometer 184 145 Random Glucose 193 H D Calcium 8.1 L Total Bilirubin 0.8 D AST 30 ALT 44 D Alkaline Phosphatase 134 H Total Protein 7.7 Albumin 2.9 L Urine Color Urine Appearance Urine pH Ur Specific [place] Urine Protein Urine Glucose (UA) Urine Ketones Urine Blood Urine Nitrite Urine Bilirubin Urine Urobilinogen Ur Leukocyte Esterase Urine WBC (Auto) Urine RBC (Auto) Ur Epithelial Cells Urine Mucus RPR Titer condition much improved, reviewed bloodwork Assessment: 07/17/17 15:00 OUD - withdrawal sx persist , increase suboxone to 12mg daily, extra 4mg today, imodium for diarrhea, neuropathic pain - keysah corbett neurontin started.
[2017-07-17] MEDS: GABAPENTIN 100 MG CAPSULE (FP) PO SCH ×2 (16:51→21:34)
[2017-07-17] MEDS ORDERED: BUPRENORPHINE/NALOXONE 2 MG/0.5 MG FILM PACKET SL ONE (17:00)
[2017-07-17] MEDS: SIMETHICONE 80 MG TAB.CHEW (FP) PO PRN (17:46)
[2017-07-17] MEDS: AMITRIPTYLINE HCL 25 MG TABLET (FP) PO SCH (21:34)
[2017-07-17] MEDS: THIAMINE HCL 100 MG TABLET (FP) PO SCH (21:34)
[2017-07-18] MEDS: CYCLOBENZAPRINE HCL 10 MG TABLET (FP) PO SCH ×3 (06:04→21:31)
[2017-07-18] MEDS: GABAPENTIN 100 MG CAPSULE (FP) PO SCH ×3 (06:04→21:31)
[2017-07-18] MEDS: INSULIN SLIDING SCALE (NOVOLOG) 1 VIAL SQ SCH ×2 (06:05→16:47)
[2017-07-18] MEDS ORDERED: DIPHENOXYLATE 2.5/ATROPINE.025 1 COMBO TABLET PO PRN (07:08)
[2017-07-18] MEDS: FERROUS SO4 325 MG TABLET (FP) PO SCH ×2 (07:33→16:48)
[2017-07-18] MEDS: PRENATAL VITAMINS W/ FOLIC ACID TABLET (FP) PO SCH (10:38)
[2017-07-18] MEDS: EMTRICITABINE 200MG/TENOFOVIR 300MG PO SCH (10:39)
[2017-07-18] MEDS: MEGESTROL ACETATE 400 MG/10 ML UNIT DOSE CUP PO SCH (10:39)
[2017-07-18] MEDS: ATAZANAVIR SULFATE/COBICISTAT (EVOTAZ) TABLET PO SCH (10:39)
[2017-07-18] MEDS: BUPRENORPHINE HCL/NALOXONE 12 MG-3 MG SL FILM PACKET SL SCH (10:40)
[2017-07-18] MEDS: CLOTRIMAZOLE/BETAMET DIPROP TOPICAL CREAM 45 GM TUBE TP SCH ×2 (10:40→21:31)
[2017-07-18] MEDS: BUDESONIDE/FORMETEROL FUMARATE 160/4.5 mcg INHALER IH SCH ×2 (10:40→21:31)
[2017-07-18] MEDS ORDERED: INSULIN (NOVOLOG) ASPART 100 UNITS/ML 10ML VIAL ONE (16:57)
[2017-07-18] MEDS: THIAMINE HCL 100 MG TABLET (FP) PO SCH (21:31)
[2017-07-18] MEDS: AMITRIPTYLINE HCL 25 MG TABLET (FP) PO SCH (21:31)
[2017-07-19] MEDS: INSULIN SLIDING SCALE (NOVOLOG) 1 VIAL SQ SCH ×2 (06:10→17:08)
[2017-07-19] MEDS: GABAPENTIN 100 MG CAPSULE (FP) PO SCH ×3 (06:10→21:51)
[2017-07-19] MEDS: CYCLOBENZAPRINE HCL 10 MG TABLET (FP) PO SCH ×3 (06:10→21:52)
[2017-07-19] MEDS: FERROUS SO4 325 MG TABLET (FP) PO SCH ×2 (07:23→17:08)
[2017-07-19] MEDS: PRENATAL VITAMINS W/ FOLIC ACID TABLET (FP) PO SCH (09:30)
[2017-07-19] MEDS: ACETAMINOPHEN 325 MG TABLET (FP) PO PRN (09:33)
[2017-07-19] MEDS: ATAZANAVIR SULFATE/COBICISTAT (EVOTAZ) TABLET PO SCH (09:34)
[2017-07-19] MEDS: MEGESTROL ACETATE 400 MG/10 ML UNIT DOSE CUP PO SCH (09:34)
[2017-07-19] MEDS: EMTRICITABINE 200MG/TENOFOVIR 300MG PO SCH (09:35)
[2017-07-19] MEDS: BUDESONIDE/FORMETEROL FUMARATE 160/4.5 mcg INHALER IH SCH ×2 (09:35→21:52)
[2017-07-19] MEDS: CLOTRIMAZOLE/BETAMET DIPROP TOPICAL CREAM 45 GM TUBE TP SCH ×2 (09:36→21:53)
[2017-07-19] MEDS: BUPRENORPHINE HCL/NALOXONE 12 MG-3 MG SL FILM PACKET SL SCH (09:36)
[2017-07-19] MEDS: THIAMINE HCL 100 MG TABLET (FP) PO SCH (21:52)
[2017-07-19] MEDS: AMITRIPTYLINE HCL 25 MG TABLET (FP) PO SCH (21:53)
[2017-07-20] MEDS: INSULIN SLIDING SCALE (NOVOLOG) 1 VIAL SQ SCH ×2 (06:32→17:04)
[2017-07-20] MEDS: GABAPENTIN 100 MG CAPSULE (FP) PO SCH ×3 (06:32→21:37)
[2017-07-20] MEDS: CYCLOBENZAPRINE HCL 10 MG TABLET (FP) PO SCH ×3 (06:32→21:37)
[2017-07-20] MEDS: FERROUS SO4 325 MG TABLET (FP) PO SCH ×2 (07:34→17:16)
[2017-07-20] MEDS: MEGESTROL ACETATE 400 MG/10 ML UNIT DOSE CUP PO SCH (10:34)
[2017-07-20] MEDS: ATAZANAVIR SULFATE/COBICISTAT (EVOTAZ) TABLET PO SCH (10:35)
[2017-07-20] MEDS: BUDESONIDE/FORMETEROL FUMARATE 160/4.5 mcg INHALER IH SCH ×2 (10:35→21:37)
[2017-07-20] MEDS: BUPRENORPHINE HCL/NALOXONE 12 MG-3 MG SL FILM PACKET SL SCH (10:35)
[2017-07-20] MEDS: CLOTRIMAZOLE/BETAMET DIPROP TOPICAL CREAM 45 GM TUBE TP SCH ×2 (10:35→21:37)
[2017-07-20] MEDS: EMTRICITABINE 200MG/TENOFOVIR 300MG PO SCH (10:35)
[2017-07-20] MEDS: PRENATAL VITAMINS W/ FOLIC ACID TABLET (FP) PO SCH (10:35)
[2017-07-20] MEDS ORDERED: IBUPROFEN 400 MG TABLET (FP) PO PRN (17:01)
--- NOTE | 2017-07-20 17:06 | PN ---
[facility] Progress Note Note: Patient c/o neck pain 12/21 x 3 days with no stiffness and non-radiating in nature. Vital Signs Temperature 99.2 F 07/20/17 07:09 Pulse Rate 105 H 07/20/17 07:09 Respiratory Rate 18 07/20/17 07:09 Blood Pressure 122/79 07/20/17 07:09 O2 Sat by Pulse Oximetry (%) Laboratory Last Values WBC 6.0 K/mm3 (4.0-10.0) D 07/16/17 08:30 RBC 4.66 M/mm3 (4.00-5.60) 07/16/17 08:30 Hgb 11.6 GM/dL (11.7-16.9) L D 07/16/17 08:30 Hct 35.3 % (35.4-49) L D 07/16/17 08:30 MCV 75.9 fl (80-96) L 07/16/17 08:30 MCH 25.0 pg (25.7-33.7) L 07/16/17 08:30 MCHC 33.0 g/dl (32.0-35.9) 07/16/17 08:30 RDW 18.2 % (11.9-15.9) H D 07/16/17 08:30 Plt Count 335 K/MM3 (134-434) D 07/16/17 08:30 MPV 8.7 fl (7.5-11.1) 07/16/17 08:30 Neutrophils % Electric Arc Welder 07/16/17 08:30 Neutrophils % (Manual) 61.0 % (42.8-82.8) 07/16/17 08:30 Band Neutrophils % 3.0 % 07/16/17 08:30 Lymphocytes % Electric Arc Welder 07/16/17 08:30 Lymphocytes % (Manual) 22.0 % (8-40) 07/16/17 08:30 Monocytes % Electric Arc Welder 07/16/17 08:30 Monocytes % (Manual) 10 % (3.8-10.2) 07/16/17 08:30 Eosinophils % Electric Arc Welder 07/16/17 08:30 Eosinophils % (Manual) 4.0 % (0-4.5) 07/16/17 08:30 Basophils % Electric Arc Welder 07/16/17 08:30 Platelet Estimate Adequate 07/16/17 08:30 Sodium 138 mmol/L (136-145) 07/16/17 08:30 Potassium 3.9 mmol/L (3.5-5.1) 07/16/17 08:30 Chloride 103 mmol/L (98-107) 07/16/17 08:30 Carbon Dioxide 22 mmol/L (21-32) 07/16/17 08:30 Anion Gap 13 (8-16) 07/16/17 08:30 BUN 10 mg/dL (7-18) D 07/16/17 08:30 Creatinine 0.6 mg/dL (0.7-1.3) L 07/16/17 08:30 Creat Clearance w eGFR > 60 (>60) 07/16/17 08:30 POC Glucometer 124 UNITS (80-120) 07/20/17 06:31 Random Glucose 193 mg/dL (74-106) H D 07/16/17 08:30 Calcium 8.1 mg/dL (8.5-10.1) L 07/16/17 08:30 Total Bilirubin 0.8 mg/dL (0.2-1.0) D 07/16/17 08:30 AST 30 U/L (15-37) 07/16/17 08:30 ALT 44 U/L (12-78) D 07/16/17 08:30 Alkaline Phosphatase 134 U/L (45-117) H 07/16/17 08:30 Total Protein 7.7 g/dl (6.4-8.2) 07/16/17 08:30 Albumin 2.9 g/dl (3.4-5.0) L 07/16/17 08:30 Urine Color Sherri 07/12/17 21:00 Urine Appearance Cloudy 07/12/17 21:00 Urine pH 5.0 (5.0-8.0) 07/12/17 21:00 Ur Specific [place] 1.033 (1.001-1.035) 07/12/17 21:00 Urine Protein 2+ (NEGATIVE) H 07/12/17 21:00 Urine Glucose (UA) 3+ (NEGATIVE) H 07/12/17 21:00 Urine Ketones Trace (NEGATIVE) H 07/12/17 21:00 Urine Blood Negative (NEGATIVE) 07/12/17 21:00 Urine Nitrite Negative (NEGATIVE) 07/12/17 21:00 Urine Bilirubin Negative (NEGATIVE) 07/12/17 21:00 Urine Urobilinogen 4.0 e.u/dl mg/dL (0.2-1.0) 07/12/17 21:00 Ur Leukocyte Esterase 3+ (NEGATIVE) H 07/12/17 21:00 Urine WBC (Auto) 191 /hpf (3-5) 07/12/17 21:00 Urine RBC (Auto) 138 /hpf (0-3) 07/12/17 21:00 Ur Epithelial Cells Rare /HPF (FEW) 07/12/17 21:00 Urine Mucus Moderate 07/12/17 21:00 Stool O & P Wet [place] Cancelled 07/18/17 Unknown RPR Titer Nonreactive (NONREACTIVE) 07/05/17 07:00 O & P Permanent Slide Cancelled 07/18/17 Unknown Labs noted Patient AOx3 self directing, in no apparent distress Skin integrity intact, with dryness and peeling on the right upper extremity pain ambulatory with mild limp secondary to serve scoliosis, + neck pain Negative Neuro symptoms Plan: Increase fluids Ibuprofen 400mg TID Continue flexeril repeat U/A Continue to monitor
[2017-07-20] MEDS: AMITRIPTYLINE HCL 25 MG TABLET (FP) PO SCH (21:37)
[2017-07-20] MEDS: THIAMINE HCL 100 MG TABLET (FP) PO SCH (21:37)
[2017-07-20 23:52] LABS: URINE APPEARANCE CLOUDY; URINE BILIRUBIN NEGATIVE (NEGATIVE); URINE BLOOD NEGATIVE (NEGATIVE); URINE COLOR YELLOW; URINE GLUCOSE (UA) 3+ (NEGATIVE); URINE KETONE TRACE (NEGATIVE); URINE NITRITE NEGATIVE (NEGATIVE); URINE UROBILINOGEN 4.0 E.U/dl mg/dL (0.2-1.0)
[2017-07-20 23:53] LABS: URINE LEUK ESTERASE 2+ (NEGATIVE); URINE PROTEIN 2+ (NEGATIVE)
[2017-07-20 23:57] LABS: EPI CELLS RARE /HPF (FEW); URINE HYALINE CAST 1 /lpf; URINE MUCUS RARE
[2017-07-21] MEDS ORDERED: INSULIN (NOVOLOG) ASPART 100 UNITS/ML 10ML VIAL ONE ×2 (06:06→17:02)
[2017-07-21] MEDS: CYCLOBENZAPRINE HCL 10 MG TABLET (FP) PO SCH ×3 (06:27→21:39)
[2017-07-21] MEDS: GABAPENTIN 100 MG CAPSULE (FP) PO SCH ×3 (06:28→21:39)
[2017-07-21] MEDS: INSULIN SLIDING SCALE (NOVOLOG) 1 VIAL SQ SCH ×2 (06:29→17:01)
[2017-07-21] MEDS: FERROUS SO4 325 MG TABLET (FP) PO SCH ×2 (07:00→16:58)
[2017-07-21] MEDS: MEGESTROL ACETATE 400 MG/10 ML UNIT DOSE CUP PO SCH (10:04)
[2017-07-21] MEDS: ATAZANAVIR SULFATE/COBICISTAT (EVOTAZ) TABLET PO SCH (10:04)
[2017-07-21] MEDS: PRENATAL VITAMINS W/ FOLIC ACID TABLET (FP) PO SCH (10:04)
[2017-07-21] MEDS: BUPRENORPHINE HCL/NALOXONE 12 MG-3 MG SL FILM PACKET SL SCH (10:05)
[2017-07-21] MEDS: CLOTRIMAZOLE/BETAMET DIPROP TOPICAL CREAM 45 GM TUBE TP SCH ×2 (10:06→21:39)
[2017-07-21] MEDS: BUDESONIDE/FORMETEROL FUMARATE 160/4.5 mcg INHALER IH SCH ×2 (10:06→21:40)
[2017-07-21] MEDS: EMTRICITABINE 200MG/TENOFOVIR 300MG PO SCH (10:06)
[2017-07-21] MEDS: AMITRIPTYLINE HCL 25 MG TABLET (FP) PO SCH (21:39)
[2017-07-21] MEDS: THIAMINE HCL 100 MG TABLET (FP) PO SCH (21:39)
[2017-07-22] MEDS: GABAPENTIN 100 MG CAPSULE (FP) PO SCH ×3 (06:44→21:38)
[2017-07-22] MEDS: CYCLOBENZAPRINE HCL 10 MG TABLET (FP) PO SCH ×3 (06:44→21:38)
[2017-07-22] MEDS: INSULIN SLIDING SCALE (NOVOLOG) 1 VIAL SQ SCH ×2 (06:45→16:36)
[2017-07-22] MEDS: FERROUS SO4 325 MG TABLET (FP) PO SCH ×2 (08:18→16:35)
[2017-07-22] MEDS: MEGESTROL ACETATE 400 MG/10 ML UNIT DOSE CUP PO SCH (10:07)
[2017-07-22] MEDS: PRENATAL VITAMINS W/ FOLIC ACID TABLET (FP) PO SCH (10:07)
[2017-07-22] MEDS: ATAZANAVIR SULFATE/COBICISTAT (EVOTAZ) TABLET PO SCH (10:07)
[2017-07-22] MEDS: BUPRENORPHINE HCL/NALOXONE 12 MG-3 MG SL FILM PACKET SL SCH (10:07)
[2017-07-22] MEDS: BUDESONIDE/FORMETEROL FUMARATE 160/4.5 mcg INHALER IH SCH ×2 (10:09→21:38)
[2017-07-22] MEDS: EMTRICITABINE 200MG/TENOFOVIR 300MG PO SCH (10:09)
[2017-07-22] MEDS: CLOTRIMAZOLE/BETAMET DIPROP TOPICAL CREAM 45 GM TUBE TP SCH ×2 (10:09→21:38)
[2017-07-22] MEDS: AMITRIPTYLINE HCL 25 MG TABLET (FP) PO SCH (21:38)
[2017-07-22] MEDS: THIAMINE HCL 100 MG TABLET (FP) PO SCH (21:38)
[2017-07-23] MEDS: GABAPENTIN 100 MG CAPSULE (FP) PO SCH ×3 (06:10→21:35)
[2017-07-23] MEDS: CYCLOBENZAPRINE HCL 10 MG TABLET (FP) PO SCH ×3 (06:10→21:35)
[2017-07-23] MEDS: INSULIN SLIDING SCALE (NOVOLOG) 1 VIAL SQ SCH ×2 (06:10→16:42)
[2017-07-23] MEDS: FERROUS SO4 325 MG TABLET (FP) PO SCH ×2 (07:21→16:40)
[2017-07-23] MEDS: CLOTRIMAZOLE/BETAMET DIPROP TOPICAL CREAM 45 GM TUBE TP SCH ×2 (09:56→21:36)
[2017-07-23] MEDS: ATAZANAVIR SULFATE/COBICISTAT (EVOTAZ) TABLET PO SCH (09:56)
[2017-07-23] MEDS: BUDESONIDE/FORMETEROL FUMARATE 160/4.5 mcg INHALER IH SCH ×2 (09:56→21:36)
[2017-07-23] MEDS: PRENATAL VITAMINS W/ FOLIC ACID TABLET (FP) PO SCH (09:56)
[2017-07-23] MEDS: BUPRENORPHINE HCL/NALOXONE 12 MG-3 MG SL FILM PACKET SL SCH (09:56)
[2017-07-23] MEDS: EMTRICITABINE 200MG/TENOFOVIR 300MG PO SCH (09:57)
[2017-07-23] MEDS: MEGESTROL ACETATE 400 MG/10 ML UNIT DOSE CUP PO SCH (10:33)
[2017-07-23] MEDS: AMITRIPTYLINE HCL 25 MG TABLET (FP) PO SCH (21:35)
[2017-07-23] MEDS: SIMETHICONE 80 MG TAB.CHEW (FP) PO PRN (21:35)
[2017-07-23] MEDS: THIAMINE HCL 100 MG TABLET (FP) PO SCH (21:35)
[2017-07-24] MEDS: INSULIN SLIDING SCALE (NOVOLOG) 1 VIAL SQ SCH ×2 (06:13→16:54)
[2017-07-24] MEDS: GABAPENTIN 100 MG CAPSULE (FP) PO SCH ×3 (06:13→21:31)
[2017-07-24] MEDS: CYCLOBENZAPRINE HCL 10 MG TABLET (FP) PO SCH ×3 (06:13→21:31)
[2017-07-24] MEDS: FERROUS SO4 325 MG TABLET (FP) PO SCH ×2 (07:31→16:53)
[2017-07-24] MEDS: MEGESTROL ACETATE 400 MG/10 ML UNIT DOSE CUP PO SCH (09:51)
[2017-07-24] MEDS: PRENATAL VITAMINS W/ FOLIC ACID TABLET (FP) PO SCH (09:51)
[2017-07-24] MEDS: EMTRICITABINE 200MG/TENOFOVIR 300MG PO SCH (09:52)
[2017-07-24] MEDS: ATAZANAVIR SULFATE/COBICISTAT (EVOTAZ) TABLET PO SCH (09:53)
[2017-07-24] MEDS: BUPRENORPHINE HCL/NALOXONE 12 MG-3 MG SL FILM PACKET SL SCH (09:53)
[2017-07-24] MEDS: BUDESONIDE/FORMETEROL FUMARATE 160/4.5 mcg INHALER IH SCH ×2 (09:53→21:31)
[2017-07-24] MEDS: CLOTRIMAZOLE/BETAMET DIPROP TOPICAL CREAM 45 GM TUBE TP SCH ×2 (09:55→21:31)
[2017-07-24] MEDS: AMITRIPTYLINE HCL 25 MG TABLET (FP) PO SCH (21:31)
[2017-07-24] MEDS: THIAMINE HCL 100 MG TABLET (FP) PO SCH (21:31)
[2017-07-25] MEDS: GABAPENTIN 100 MG CAPSULE (FP) PO SCH ×3 (06:16→21:33)
[2017-07-25] MEDS: CYCLOBENZAPRINE HCL 10 MG TABLET (FP) PO SCH ×3 (06:16→21:32)
[2017-07-25] MEDS: INSULIN SLIDING SCALE (NOVOLOG) 1 VIAL SQ SCH ×2 (06:17→16:49)
[2017-07-25] MEDS ORDERED: INSULIN (NOVOLOG) ASPART 100 UNITS/ML 10ML VIAL ONE ×2 (06:17→16:50)
[2017-07-25] MEDS: FERROUS SO4 325 MG TABLET (FP) PO SCH ×2 (07:29→16:49)
[2017-07-25] MEDS: MEGESTROL ACETATE 400 MG/10 ML UNIT DOSE CUP PO SCH (09:39)
[2017-07-25] MEDS: EMTRICITABINE 200MG/TENOFOVIR 300MG PO SCH (09:39)
[2017-07-25] MEDS: PRENATAL VITAMINS W/ FOLIC ACID TABLET (FP) PO SCH (09:39)
[2017-07-25] MEDS: BUPRENORPHINE HCL/NALOXONE 12 MG-3 MG SL FILM PACKET SL SCH (09:39)
[2017-07-25] MEDS: ATAZANAVIR SULFATE/COBICISTAT (EVOTAZ) TABLET PO SCH (09:39)
[2017-07-25] MEDS: BUDESONIDE/FORMETEROL FUMARATE 160/4.5 mcg INHALER IH SCH ×2 (09:40→21:33)
[2017-07-25] MEDS: CLOTRIMAZOLE/BETAMET DIPROP TOPICAL CREAM 45 GM TUBE TP SCH ×2 (09:40→21:33)
[2017-07-25] MEDS: THIAMINE HCL 100 MG TABLET (FP) PO SCH (21:32)
[2017-07-25] MEDS: AMITRIPTYLINE HCL 25 MG TABLET (FP) PO SCH (21:32)
[2017-07-26] MEDS: CYCLOBENZAPRINE HCL 10 MG TABLET (FP) PO SCH ×3 (06:01→21:44)
[2017-07-26] MEDS: INSULIN SLIDING SCALE (NOVOLOG) 1 VIAL SQ SCH ×2 (06:01→17:08)
[2017-07-26] MEDS: GABAPENTIN 100 MG CAPSULE (FP) PO SCH ×3 (06:01→21:46)
[2017-07-26] MEDS ORDERED: INSULIN (NOVOLOG) ASPART 100 UNITS/ML 10ML VIAL ONE ×2 (06:41→17:04)
[2017-07-26] MEDS: FERROUS SO4 325 MG TABLET (FP) PO SCH ×2 (07:25→17:05)
[2017-07-26] MEDS: ATAZANAVIR SULFATE/COBICISTAT (EVOTAZ) TABLET PO SCH (10:15)
[2017-07-26] MEDS: EMTRICITABINE 200MG/TENOFOVIR 300MG PO SCH (10:15)
[2017-07-26] MEDS: PRENATAL VITAMINS W/ FOLIC ACID TABLET (FP) PO SCH (10:16)
[2017-07-26] MEDS: MEGESTROL ACETATE 400 MG/10 ML UNIT DOSE CUP PO SCH (10:16)
[2017-07-26] MEDS: CLOTRIMAZOLE/BETAMET DIPROP TOPICAL CREAM 45 GM TUBE TP SCH ×2 (10:16→21:44)
[2017-07-26] MEDS: BUDESONIDE/FORMETEROL FUMARATE 160/4.5 mcg INHALER IH SCH ×2 (10:18→21:44)
[2017-07-26] MEDS: THIAMINE HCL 100 MG TABLET (FP) PO SCH (21:44)
[2017-07-26] MEDS: AMITRIPTYLINE HCL 25 MG TABLET (FP) PO SCH (21:44)
--- NOTE | 2017-07-26 22:00 | PN ---
S Progress Note Note: Patient on Suboxone 12mg qd, prior order . Renewal order place x 7 days Continue to monitor
[2017-07-26] MEDS: BUPRENORPHINE HCL/NALOXONE 12 MG-3 MG SL FILM PACKET SL SCH (22:17)
[2017-07-27] MEDS: CYCLOBENZAPRINE HCL 10 MG TABLET (FP) PO SCH ×3 (06:10→21:40)
[2017-07-27] MEDS: INSULIN SLIDING SCALE (NOVOLOG) 1 VIAL SQ SCH ×2 (06:10→17:09)
[2017-07-27] MEDS: GABAPENTIN 100 MG CAPSULE (FP) PO SCH ×3 (06:10→21:40)
[2017-07-27] MEDS ORDERED: INSULIN (NOVOLOG) ASPART 100 UNITS/ML 10ML VIAL ONE ×2 (06:12→17:08)
[2017-07-27] MEDS: FERROUS SO4 325 MG TABLET (FP) PO SCH ×2 (07:11→17:07)
[2017-07-27] MEDS: PRENATAL VITAMINS W/ FOLIC ACID TABLET (FP) PO SCH (09:33)
[2017-07-27] MEDS: MEGESTROL ACETATE 400 MG/10 ML UNIT DOSE CUP PO SCH (09:34)
[2017-07-27] MEDS: CLOTRIMAZOLE/BETAMET DIPROP TOPICAL CREAM 45 GM TUBE TP SCH ×2 (09:34→21:41)
[2017-07-27] MEDS: ATAZANAVIR SULFATE/COBICISTAT (EVOTAZ) TABLET PO SCH (09:35)
[2017-07-27] MEDS: BUPRENORPHINE HCL/NALOXONE 12 MG-3 MG SL FILM PACKET SL SCH (09:35)
[2017-07-27] MEDS: BUDESONIDE/FORMETEROL FUMARATE 160/4.5 mcg INHALER IH SCH ×2 (09:35→21:41)
[2017-07-27] MEDS: EMTRICITABINE 200MG/TENOFOVIR 300MG PO SCH (09:36)
[2017-07-27] MEDS: THIAMINE HCL 100 MG TABLET (FP) PO SCH (21:40)
[2017-07-27] MEDS: AMITRIPTYLINE HCL 25 MG TABLET (FP) PO SCH (21:40)
[2017-07-28] MEDS: INSULIN SLIDING SCALE (NOVOLOG) 1 VIAL SQ SCH ×2 (06:24→16:58)
[2017-07-28] MEDS: GABAPENTIN 100 MG CAPSULE (FP) PO SCH ×3 (06:24→21:46)
[2017-07-28] MEDS: CYCLOBENZAPRINE HCL 10 MG TABLET (FP) PO SCH ×3 (06:24→21:46)
[2017-07-28] MEDS: FERROUS SO4 325 MG TABLET (FP) PO SCH ×2 (07:27→17:00)
[2017-07-28] MEDS: PRENATAL VITAMINS W/ FOLIC ACID TABLET (FP) PO SCH (10:21)
[2017-07-28] MEDS: MEGESTROL ACETATE 400 MG/10 ML UNIT DOSE CUP PO SCH (10:21)
[2017-07-28] MEDS: BUPRENORPHINE HCL/NALOXONE 12 MG-3 MG SL FILM PACKET SL SCH (10:21)
[2017-07-28] MEDS: ATAZANAVIR SULFATE/COBICISTAT (EVOTAZ) TABLET PO SCH (10:21)
[2017-07-28] MEDS: EMTRICITABINE 200MG/TENOFOVIR 300MG PO SCH (10:22)
[2017-07-28] MEDS: BUDESONIDE/FORMETEROL FUMARATE 160/4.5 mcg INHALER IH SCH ×2 (10:22→21:46)
[2017-07-28] MEDS: CLOTRIMAZOLE/BETAMET DIPROP TOPICAL CREAM 45 GM TUBE TP SCH ×2 (10:23→21:46)
[2017-07-28] MEDS ORDERED: INSULIN (NOVOLOG) ASPART 100 UNITS/ML 10ML VIAL ONE (16:59)
[2017-07-28] MEDS: SIMETHICONE 80 MG TAB.CHEW (FP) PO PRN (17:00)
[2017-07-28] MEDS: THIAMINE HCL 100 MG TABLET (FP) PO SCH (21:45)
[2017-07-28] MEDS: AMITRIPTYLINE HCL 25 MG TABLET (FP) PO SCH (21:46)
[2017-07-29] MEDS: CYCLOBENZAPRINE HCL 10 MG TABLET (FP) PO SCH ×3 (06:38→21:46)
[2017-07-29] MEDS: GABAPENTIN 100 MG CAPSULE (FP) PO SCH ×3 (06:38→21:46)
[2017-07-29] MEDS: INSULIN SLIDING SCALE (NOVOLOG) 1 VIAL SQ SCH ×2 (06:39→16:49)
[2017-07-29] MEDS ORDERED: INSULIN (NOVOLOG) ASPART 100 UNITS/ML 10ML VIAL ONE ×2 (06:39→17:02)
[2017-07-29] MEDS: FERROUS SO4 325 MG TABLET (FP) PO SCH ×2 (07:02→17:45)
[2017-07-29] MEDS: CLOTRIMAZOLE/BETAMET DIPROP TOPICAL CREAM 45 GM TUBE TP SCH ×2 (10:32→21:47)
[2017-07-29] MEDS: PRENATAL VITAMINS W/ FOLIC ACID TABLET (FP) PO SCH (10:32)
[2017-07-29] MEDS: MEGESTROL ACETATE 400 MG/10 ML UNIT DOSE CUP PO SCH (10:33)
[2017-07-29] MEDS: BUPRENORPHINE HCL/NALOXONE 12 MG-3 MG SL FILM PACKET SL SCH (10:33)
[2017-07-29] MEDS: EMTRICITABINE 200MG/TENOFOVIR 300MG PO SCH (10:33)
[2017-07-29] MEDS: BUDESONIDE/FORMETEROL FUMARATE 160/4.5 mcg INHALER IH SCH ×2 (10:33→21:47)
[2017-07-29] MEDS: ATAZANAVIR SULFATE/COBICISTAT (EVOTAZ) TABLET PO SCH (10:33)
[2017-07-29] MEDS: THIAMINE HCL 100 MG TABLET (FP) PO SCH (21:46)
[2017-07-29] MEDS: AMITRIPTYLINE HCL 25 MG TABLET (FP) PO SCH (21:47)
[2017-07-30] MEDS: GABAPENTIN 100 MG CAPSULE (FP) PO SCH ×3 (06:16→21:58)
[2017-07-30] MEDS: CYCLOBENZAPRINE HCL 10 MG TABLET (FP) PO SCH ×3 (06:16→21:58)
[2017-07-30] MEDS: INSULIN SLIDING SCALE (NOVOLOG) 1 VIAL SQ SCH ×2 (06:17→17:09)
[2017-07-30] MEDS: FERROUS SO4 325 MG TABLET (FP) PO SCH ×2 (07:16→17:14)
[2017-07-30] MEDS: MEGESTROL ACETATE 400 MG/10 ML UNIT DOSE CUP PO SCH (10:23)
[2017-07-30] MEDS: PRENATAL VITAMINS W/ FOLIC ACID TABLET (FP) PO SCH (10:23)
[2017-07-30] MEDS: CLOTRIMAZOLE/BETAMET DIPROP TOPICAL CREAM 45 GM TUBE TP SCH ×2 (10:23→21:58)
[2017-07-30] MEDS: BUPRENORPHINE HCL/NALOXONE 12 MG-3 MG SL FILM PACKET SL SCH (10:23)
[2017-07-30] MEDS: ATAZANAVIR SULFATE/COBICISTAT (EVOTAZ) TABLET PO SCH (10:23)
[2017-07-30] MEDS: EMTRICITABINE 200MG/TENOFOVIR 300MG PO SCH (10:23)
[2017-07-30] MEDS: BUDESONIDE/FORMETEROL FUMARATE 160/4.5 mcg INHALER IH SCH ×2 (10:24→21:58)
[2017-07-30] MEDS ORDERED: INSULIN (NOVOLOG) ASPART 100 UNITS/ML 10ML VIAL ONE (17:17)
[2017-07-30] MEDS: SIMETHICONE 80 MG TAB.CHEW (FP) PO PRN (21:58)
[2017-07-30] MEDS: THIAMINE HCL 100 MG TABLET (FP) PO SCH (21:58)
[2017-07-30] MEDS: AMITRIPTYLINE HCL 25 MG TABLET (FP) PO SCH (21:58)
[2017-07-31] MEDS: CYCLOBENZAPRINE HCL 10 MG TABLET (FP) PO SCH ×3 (06:09→21:36)
[2017-07-31] MEDS: GABAPENTIN 100 MG CAPSULE (FP) PO SCH ×3 (06:09→21:36)
[2017-07-31] MEDS: INSULIN SLIDING SCALE (NOVOLOG) 1 VIAL SQ SCH ×2 (06:09→17:08)
[2017-07-31] MEDS: FERROUS SO4 325 MG TABLET (FP) PO SCH ×2 (09:00→17:07)
[2017-07-31] MEDS: BUDESONIDE/FORMETEROL FUMARATE 160/4.5 mcg INHALER IH SCH ×2 (10:00→21:37)
[2017-07-31] MEDS: MEGESTROL ACETATE 400 MG/10 ML UNIT DOSE CUP PO SCH (10:00)
[2017-07-31] MEDS: EMTRICITABINE 200MG/TENOFOVIR 300MG PO SCH (10:00)
[2017-07-31] MEDS: BUPRENORPHINE HCL/NALOXONE 12 MG-3 MG SL FILM PACKET SL SCH (10:00)
[2017-07-31] MEDS: PRENATAL VITAMINS W/ FOLIC ACID TABLET (FP) PO SCH (10:00)
[2017-07-31] MEDS: ATAZANAVIR SULFATE/COBICISTAT (EVOTAZ) TABLET PO SCH (10:01)
[2017-07-31] MEDS: CLOTRIMAZOLE/BETAMET DIPROP TOPICAL CREAM 45 GM TUBE TP SCH ×2 (10:01→21:37)
[2017-07-31] MEDS ORDERED: INSULIN (NOVOLOG) ASPART 100 UNITS/ML 10ML VIAL ONE (17:21)
[2017-07-31] MEDS: AMITRIPTYLINE HCL 25 MG TABLET (FP) PO SCH (21:36)
[2017-07-31] MEDS: THIAMINE HCL 100 MG TABLET (FP) PO SCH (21:36)
[2017-08-01] MEDS: INSULIN SLIDING SCALE (NOVOLOG) 1 VIAL SQ SCH ×2 (06:02→16:56)
[2017-08-01] MEDS: GABAPENTIN 100 MG CAPSULE (FP) PO SCH ×3 (06:02→21:49)
[2017-08-01] MEDS: CYCLOBENZAPRINE HCL 10 MG TABLET (FP) PO SCH ×3 (06:02→21:49)
[2017-08-01] MEDS: FERROUS SO4 325 MG TABLET (FP) PO SCH ×2 (07:58→16:52)
[2017-08-01] MEDS: MEGESTROL ACETATE 400 MG/10 ML UNIT DOSE CUP PO SCH (10:31)
[2017-08-01] MEDS: ATAZANAVIR SULFATE/COBICISTAT (EVOTAZ) TABLET PO SCH (10:31)
[2017-08-01] MEDS: PRENATAL VITAMINS W/ FOLIC ACID TABLET (FP) PO SCH (10:32)
[2017-08-01] MEDS: BUPRENORPHINE HCL/NALOXONE 12 MG-3 MG SL FILM PACKET SL SCH (10:32)
[2017-08-01] MEDS: CLOTRIMAZOLE/BETAMET DIPROP TOPICAL CREAM 45 GM TUBE TP SCH ×2 (10:32→21:50)
[2017-08-01] MEDS: BUDESONIDE/FORMETEROL FUMARATE 160/4.5 mcg INHALER IH SCH ×2 (10:33→21:50)
[2017-08-01] MEDS: EMTRICITABINE 200MG/TENOFOVIR 300MG PO SCH (10:34)
[2017-08-01] MEDS ORDERED: INSULIN (NOVOLOG) ASPART 100 UNITS/ML 10ML VIAL ONE (16:55)
[2017-08-01] MEDS: AMITRIPTYLINE HCL 25 MG TABLET (FP) PO SCH (21:49)
[2017-08-01] MEDS: THIAMINE HCL 100 MG TABLET (FP) PO SCH (21:49)
[2017-08-02] MEDS: GABAPENTIN 100 MG CAPSULE (FP) PO SCH ×3 (06:12→21:33)
[2017-08-02] MEDS: CYCLOBENZAPRINE HCL 10 MG TABLET (FP) PO SCH ×3 (06:12→21:33)
[2017-08-02] MEDS: INSULIN SLIDING SCALE (NOVOLOG) 1 VIAL SQ SCH ×2 (06:12→16:47)
[2017-08-02] MEDS: FERROUS SO4 325 MG TABLET (FP) PO SCH ×2 (07:45→16:47)
[2017-08-02] MEDS: ATAZANAVIR SULFATE/COBICISTAT (EVOTAZ) TABLET PO SCH (10:26)
[2017-08-02] MEDS: PRENATAL VITAMINS W/ FOLIC ACID TABLET (FP) PO SCH (10:27)
[2017-08-02] MEDS: BUDESONIDE/FORMETEROL FUMARATE 160/4.5 mcg INHALER IH SCH ×2 (10:27→21:34)
[2017-08-02] MEDS: CLOTRIMAZOLE/BETAMET DIPROP TOPICAL CREAM 45 GM TUBE TP SCH ×2 (10:27→21:34)
[2017-08-02] MEDS: MEGESTROL ACETATE 400 MG/10 ML UNIT DOSE CUP PO SCH (10:27)
[2017-08-02] MEDS: BUPRENORPHINE HCL/NALOXONE 12 MG-3 MG SL FILM PACKET SL SCH (10:27)
[2017-08-02] MEDS: EMTRICITABINE 200MG/TENOFOVIR 300MG PO SCH (10:28)
[2017-08-02] MEDS ORDERED: INSULIN (NOVOLOG) ASPART 100 UNITS/ML 10ML VIAL ONE (17:18)
[2017-08-02] MEDS: THIAMINE HCL 100 MG TABLET (FP) PO SCH (21:33)
[2017-08-02] MEDS: AMITRIPTYLINE HCL 25 MG TABLET (FP) PO SCH (21:33)
[2017-08-03] MEDS: CYCLOBENZAPRINE HCL 10 MG TABLET (FP) PO SCH ×3 (06:09→21:34)
[2017-08-03] MEDS: GABAPENTIN 100 MG CAPSULE (FP) PO SCH ×3 (06:09→21:34)
[2017-08-03] MEDS: INSULIN SLIDING SCALE (NOVOLOG) 1 VIAL SQ SCH ×2 (06:10→16:48)
[2017-08-03] MEDS: FERROUS SO4 325 MG TABLET (FP) PO SCH ×2 (07:32→16:48)
[2017-08-03] MEDS: CLOTRIMAZOLE/BETAMET DIPROP TOPICAL CREAM 45 GM TUBE TP SCH ×2 (09:58→21:35)
[2017-08-03] MEDS: ATAZANAVIR SULFATE/COBICISTAT (EVOTAZ) TABLET PO SCH (09:58)
[2017-08-03] MEDS: BUDESONIDE/FORMETEROL FUMARATE 160/4.5 mcg INHALER IH SCH ×2 (09:59→21:35)
[2017-08-03] MEDS: PRENATAL VITAMINS W/ FOLIC ACID TABLET (FP) PO SCH (09:59)
[2017-08-03] MEDS: EMTRICITABINE 200MG/TENOFOVIR 300MG PO SCH (09:59)
[2017-08-03] MEDS: MEGESTROL ACETATE 400 MG/10 ML UNIT DOSE CUP PO SCH (10:01)
[2017-08-03] MEDS ORDERED: BUPRENORPHINE HCL/NALOXONE 12 MG-3 MG SL FILM PACKET SL ONE (11:15)
--- NOTE | 2017-08-03 14:25 | PN ---
S Progress Note (SOAP) Subjective: i have thrush Objective: 08/03/17 14:23 Vital Signs Temperature 99.3 F 08/03/17 07:07 Pulse Rate 93 H 08/03/17 07:07 Respiratory Rate 16 08/03/17 07:07 Blood Pressure 120/75 08/03/17 07:07 O2 Sat by Pulse Oximetry (%) oral - posterior pharynx whitish patches Assessment: 08/03/17 14:24 dusty Plan: diflucan daily.
[2017-08-03] MEDS ORDERED: FLUCONAZOLE 100 MG TABLET (UD) PO ONE (14:45)
[2017-08-03] MEDS: AMITRIPTYLINE HCL 25 MG TABLET (FP) PO SCH (21:34)
[2017-08-03] MEDS: THIAMINE HCL 100 MG TABLET (FP) PO SCH (21:34)
--- NOTE | 2017-08-03 23:22 | PN ---
S Progress Note Note: INFORMED CLIENT WITH BGM GREATER THAN 400 X 3 SINCE THIS AFTERNOON. INSULIN GIVEN ORDERED. INFORMED BY RN CLIENT CONTINUES TO EAT. NON COMPLAINT WITH DIET. BGM'S THIS EVENING APPARENTLY WERE CHECKED SHORTLY AFTER CLIENT EATING. NO HX/O DM NOTED Laboratory Results - last 24 hr 08/03/17 06:09 POC Glucometer 170 P-DC ENSURE FASTING GLUCOSE HGBA1C PITCHER FOR PO HYDRATION BGM/ SLIDING SCALE INCREASED TO ACHS CONTINUE TO MONITOR AND POSSIBLY CONSIDER ORAL HYPOGLYCEMICS PENDING LAB RESULTS
[2017-08-04] MEDS: CYCLOBENZAPRINE HCL 10 MG TABLET (FP) PO SCH ×3 (06:10→21:44)
[2017-08-04] MEDS: GABAPENTIN 100 MG CAPSULE (FP) PO SCH ×3 (06:10→21:44)
[2017-08-04] MEDS ORDERED: INSULIN (NOVOLOG) ASPART 100 UNITS/ML 10ML VIAL ONE ×3 (06:47→22:09)
[2017-08-04] MEDS ORDERED: INSULIN SLIDING SCALE (NOVOLOG) 1 VIAL SQ SCH (07:00)
[2017-08-04] MEDS: FERROUS SO4 325 MG TABLET (FP) PO SCH ×2 (07:19→17:07)
[2017-08-04] MEDS: INSULIN SLIDING SCALE (NOVOLOG) 1 VIAL SQ SCH ×4 (07:25→21:46)
[2017-08-04] MEDS: FLUCONAZOLE 100 MG TABLET (UD) PO SCH (10:25)
[2017-08-04] MEDS: PRENATAL VITAMINS W/ FOLIC ACID TABLET (FP) PO SCH (10:25)
[2017-08-04] MEDS: MEGESTROL ACETATE 400 MG/10 ML UNIT DOSE CUP PO SCH (10:25)
[2017-08-04] MEDS: ATAZANAVIR SULFATE/COBICISTAT (EVOTAZ) TABLET PO SCH (10:25)
[2017-08-04] MEDS: BUPRENORPHINE HCL/NALOXONE 12 MG-3 MG SL FILM PACKET SL SCH (10:26)
[2017-08-04] MEDS: BUDESONIDE/FORMETEROL FUMARATE 160/4.5 mcg INHALER IH SCH ×2 (10:26→21:45)
[2017-08-04] MEDS: EMTRICITABINE 200MG/TENOFOVIR 300MG PO SCH (10:26)
[2017-08-04] MEDS: CLOTRIMAZOLE/BETAMET DIPROP TOPICAL CREAM 45 GM TUBE TP SCH ×2 (10:26→21:45)
[2017-08-04] MEDS: AMITRIPTYLINE HCL 25 MG TABLET (FP) PO SCH (21:44)
[2017-08-04] MEDS: THIAMINE HCL 100 MG TABLET (FP) PO SCH (21:44)
[2017-08-04] MEDS: SIMETHICONE 80 MG TAB.CHEW (FP) PO PRN (21:49)
[2017-08-05] MEDS: CYCLOBENZAPRINE HCL 10 MG TABLET (FP) PO SCH ×3 (06:19→21:46)
[2017-08-05] MEDS: GABAPENTIN 100 MG CAPSULE (FP) PO SCH ×3 (06:19→21:46)
[2017-08-05] MEDS: FERROUS SO4 325 MG TABLET (FP) PO SCH ×2 (07:50→16:45)
[2017-08-05] MEDS ORDERED: INSULIN (NOVOLOG) ASPART 100 UNITS/ML 10ML VIAL ONE ×3 (07:52→22:06)
[2017-08-05] MEDS: INSULIN SLIDING SCALE (NOVOLOG) 1 VIAL SQ SCH ×4 (07:52→21:47)
[2017-08-05] MEDS: BUPRENORPHINE HCL/NALOXONE 12 MG-3 MG SL FILM PACKET SL SCH (10:10)
[2017-08-05] MEDS: PRENATAL VITAMINS W/ FOLIC ACID TABLET (FP) PO SCH (10:10)
[2017-08-05] MEDS: FLUCONAZOLE 100 MG TABLET (UD) PO SCH (10:10)
[2017-08-05] MEDS: MEGESTROL ACETATE 400 MG/10 ML UNIT DOSE CUP PO SCH (10:10)
[2017-08-05] MEDS: CLOTRIMAZOLE/BETAMET DIPROP TOPICAL CREAM 45 GM TUBE TP SCH ×2 (10:11→21:47)
[2017-08-05] MEDS: BUDESONIDE/FORMETEROL FUMARATE 160/4.5 mcg INHALER IH SCH ×2 (10:11→21:46)
[2017-08-05] MEDS: ATAZANAVIR SULFATE/COBICISTAT (EVOTAZ) TABLET PO SCH (10:11)
[2017-08-05] MEDS: EMTRICITABINE 200MG/TENOFOVIR 300MG PO SCH (10:11)
[2017-08-05] MEDS: THIAMINE HCL 100 MG TABLET (FP) PO SCH (21:46)
[2017-08-05] MEDS: AMITRIPTYLINE HCL 25 MG TABLET (FP) PO SCH (21:46)
[2017-08-06] MEDS: INSULIN SLIDING SCALE (NOVOLOG) 1 VIAL SQ SCH (06:04)
[2017-08-06] MEDS: CYCLOBENZAPRINE HCL 10 MG TABLET (FP) PO SCH (06:04)
[2017-08-06] MEDS: GABAPENTIN 100 MG CAPSULE (FP) PO SCH (06:04)
[2017-08-06 06:48] VITALS: BP 132/91; PULSE 99; TEMP 99.1
[2017-08-06] MEDS: FERROUS SO4 325 MG TABLET (FP) PO SCH (07:11)
[2017-08-06] MEDS ORDERED: INSULIN (NOVOLOG) ASPART 100 UNITS/ML 10ML VIAL ONE (07:12)
--- NOTE | 2017-08-06 10:44 | PN ---
Psychiatric Progress Note Vital Signs: Vital Signs Period Temp Pulse Resp BP Sys/Albrecht Pulse Ox Last 24 Hr 99.1 F 99 16-18 132/91 Date of Session: 08/06/17 Chief Complaint:: discharge visit HPI: Patiant has addressed opioid, cocaine, nicotine dependence comorbid substance induced anxiety disorder. ROS: Asthma, HIV+ medically managed. Current Medications: Active Medications Generic Name Dose Route Start Last Admin Trade Name Freq PRN Reason Stop Dose Admin Acetaminophen 650 mg 07/04/17 15:58 07/19/17 09:33 Tylenol - PO 650 mg Q4H PRN Administration FEVER Al Hydroxide/Mg Hydroxide 30 ml 07/04/17 15:58 07/14/17 00:11 Mylanta Oral Suspension - PO 30 ml Q6H PRN Administration DYSPEPSIA Albuterol Sulfate 2 puff 07/04/17 16:06 Ventolin Hfa Inhaler - IH Q4H PRN ASTHMA Amitriptyline HCl 25 mg 07/17/17 22:00 08/05/17 21:46 Elavil - PO 25 mg HS ISAIAS Administration Budesonide/Formoterol Fumarate 1 puff 07/06/17 22:00 08/05/17 21:46 Symbicort 160/4.5mcg - IH Not Given BID ISAIAS Buprenorphine/Naloxone 1 each 08/04/17 10:00 08/05/17 10:10 Suboxone 12 Mg-3 Mg Sl Film SL 1 each DAILY ISAIAS Administration Clotrimazole 1 applic 07/12/17 12:45 08/05/17 21:47 Lotrisone Cream (Large Tube) - TP Not Given BID ISAIAS Cyclobenzaprine HCl 10 mg 07/06/17 14:00 08/06/17 06:04 Flexeril - PO 10 mg TID ISAIAS Administration Emtricitabine/Tenofovir 1 tab 07/07/17 10:00 08/05/17 10:11 Truvada PO 1 tab DAILY ISAIAS Administration Eucalyptus/Menthol/Phenol/Sorbitol 1 each 07/04/17 15:58 Cepastat Lozenge - MM Q4H PRN SORE THROAT Ferrous Sulfate 325 mg 07/05/17 17:30 08/06/17 07:11 Feosol - PO 325 mg BIDWM ISAIAS Administration Fluconazole 100 mg 08/04/17 10:00 03/25/18 10:10 Diflucan - PO 04/02/18 10:01 100 mg DAILY ISAIAS Administration Gabapentin 100 mg 07/17/17 17:00 08/06/17 06:04 Neurontin - PO 100 mg TID ISAIAS Administration Guaifenesin 10 ml 07/04/17 15:58 Robitussin Dm - PO Q6H PRN COUGH Hydroxyzine Pamoate 25 mg 07/09/17 15:34 07/15/17 21:36 Vistaril - PO 25 mg Q4H PRN Administration ANXIETY Ibuprofen 400 mg 07/20/17 17:01 07/30/17 10:24 Motrin - PO 400 mg Q6H PRN Administration FEVER Insulin Aspart 1 vial 08/04/17 07:00 08/06/17 06:04 Novolog Vial Sliding Scale - SQ 4 unit ACHS ISAIAS Administration Protocol Magnesium Citrate 300 ml 07/04/17 15:58 Citroma - PO Q48H PRN CONSTIPATION Magnesium Hydroxide 30 ml 07/04/17 15:58 Milk Of Magnesia - PO DAILY PRN CONSTIPATION Megestrol Acetate 400 mg 07/06/17 16:30 08/05/17 10:10 Megace Oral Suspension - PO 400 mg DAILY ISAIAS Administration Nicotine Polacrilex 2 mg 07/04/17 15:58 07/12/17 13:02 Nicorette Gum - BC 2 mg Q2H PRN Administration NICOTINE REPLACEMENT RX Ondansetron HCl 8 mg 07/12/17 12:43 Zofran Odt - SL Q6H PRN NAUSEA AND/OR VOMITING Multivit/Folic Acid/Iron 1 tab 07/05/17 10:00 08/05/17 10:10 Vitamins (Sjr) - PO 1 tab DAILY ISAIAS Administration Pseudoephedrine/Triprolidine 1 combo 07/04/17 15:58 Actifed - PO TID PRN NASAL CONGESTION Simethicone 80 mg 07/10/17 20:50 08/04/17 21:49 Mylicon - PO 80 mg Q4H PRN Administration GAS Thiamine HCl 100 mg 07/04/17 22:00 08/05/17 21:46 Vitamin B1 - PO 100 mg HS ISAIAS Administration Current Side Effect: No Lab tests ordered: No Lab tests reviewed: Yes Provider note:: patient has completed today his treatment and met his goals, will continue to address his issues at the next level of care. He gained insght on importnce of continue maintain abstinence, utilize all supports availbale to prevent relapses. Patient is stable for discharge today. Total face to face time:: 15 Mental Status Exam - Mental Status Exam Alert and Oriented to: Time, Place, Person Cognitive Function: Good Patient Appearance: Well Groomed Mood: Hopeful Affect: Appropriate, Mood Congruent Patient Behavior: Appropriate, Cooperative Speech Pattern: Clear Voice Loudness: Normal Thought Process: Intact, Goal Oriented Thought Disorder: Not Present Hallucinations: Denies Suicidal Ideation: Denies Homicidal Ideation: Denies Insight/Judgement: Good Sleep: Well Appetite: Good Muscle strength/Tone: Normal Psychiatric Treatment Plan - Problem List (1) Cocaine dependence Current Visit: Yes (2) Opioid dependence Current Visit: Yes (3) Substance-induced anxiety disorder Current Visit: Yes (4) Nicotine dependence Current Visit: Yes Qualifiers: Nicotine product type: cigarettes Substance use status: uncomplicated Qualified Code(s): F17.210 - Nicotine dependence, cigarettes, uncomplicated (5) HIV (human immunodeficiency virus infection) Current Visit: Yes
[2017-08-06] MEDS: BUPRENORPHINE HCL/NALOXONE 12 MG-3 MG SL FILM PACKET SL SCH (10:56)
[2017-08-06] MEDS: CLOTRIMAZOLE/BETAMET DIPROP TOPICAL CREAM 45 GM TUBE TP SCH (10:56)
[2017-08-06] MEDS: MEGESTROL ACETATE 400 MG/10 ML UNIT DOSE CUP PO SCH (10:56)
[2017-08-06] MEDS: PRENATAL VITAMINS W/ FOLIC ACID TABLET (FP) PO SCH (10:58)
[2017-08-06] MEDS: EMTRICITABINE 200MG/TENOFOVIR 300MG PO SCH (10:58)
[2017-08-06] MEDS: BUDESONIDE/FORMETEROL FUMARATE 160/4.5 mcg INHALER IH SCH (10:59)
[2017-08-06] MEDS: ATAZANAVIR SULFATE/COBICISTAT (EVOTAZ) TABLET PO SCH (10:59)
[2017-08-06] MEDS: FLUCONAZOLE 100 MG TABLET (UD) PO SCH (11:00)
== END 2017-08-06 11:45 | disposition home or self-care (01) | DRG 895 ==
LOC: YASAS 11:41 → Y3N 15:21 → UNDODISIN 07-09 11:30 → Y5N 07-09 11:59
PROVIDERS: ADMIT Internal Medicine; ATTEND Psychiatry & Neurology Psychiatry
PROC: HZ2ZZZZ Detoxification Services for Substance Abuse Treatment (ICD-10-PCS; principal; 2017-07-04)
PROC: HZ42ZZZ Group Counseling for Substance Abuse Treatment, Cognitive-Behavioral (ICD-10-PCS; 2017-07-09)
DX: F11.23 Opioid dependence with withdrawal (principal); F14.20 Cocaine dependence, uncomplicated; F19.280 Other psychoactive substance dependence with psychoactive substance-induced anxiety disorder; F19.282 Other psychoactive substance dependence with psychoactive substance-induced sleep disorder; B37.0 Candidal stomatitis; E46 Unspecified protein-calorie malnutrition; Z68.1 Body mass index [BMI] 19.9 or less, adult; F17.210 Nicotine dependence, cigarettes, uncomplicated; Z91.14 Patient's other noncompliance with medication regimen; R19.7 Diarrhea, unspecified; Z21 Asymptomatic human immunodeficiency virus [HIV] infection status; B37.9 Candidiasis, unspecified; M41.9 Scoliosis, unspecified; M45.2 Ankylosing spondylitis of cervical region; B18.2 Chronic viral hepatitis C; G47.00 Insomnia, unspecified; J45.909 Unspecified asthma, uncomplicated; D64.9 Anemia, unspecified; R00.0 Tachycardia, unspecified; Z88.1 Allergy status to other antibiotic agents
CPT/HCPCS: 36415; 80053; 81003; 81015; 82947; 82962; 83036; 85025; 85027; 86593; 87177; 87209; 93005; 93010; Q0162

== ENCOUNTER 2018-07-15 12:47 | Inpatient (IN) | payer OTHER ==
[2018-07-15 13:16] VITALS: BMI 15.7
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
[2018-07-15] MEDS ORDERED: MAG HYDROX/AL HYDROX/SIMETH 30 ML UNIT-DOSE CUP PO PRN (16:31)
[2018-07-15] MEDS ORDERED: MAGNESIUM HYDROX 2400MG/30ML ORAL SUSPENSION 30 ML CUP PO PRN (16:31)
[2018-07-15] MEDS ORDERED: ACETAMINOPHEN 325 MG TABLET (FP) PO PRN (16:31)
[2018-07-15] MEDS ORDERED: P-EPHED 60MG/TRIPROLIDI 2.5MG TABLET PO PRN (16:31)
[2018-07-15] MEDS ORDERED: MENTHOL/PHENOL 1 EACH UD MM PRN (16:31)
[2018-07-15] MEDS ORDERED: METHADONE HCL 10 MG TABLET (FOR DETOX USE ONLY) PO ONE ×2 (16:31→23:00)
[2018-07-15] MEDS ORDERED: MAGNESIUM CITRATE 300 ML BOTTLE PO PRN (16:31)
[2018-07-15] MEDS: diazePAM 5 MG TABLET PO PRN (18:15)
[2018-07-15] MEDS: TRIMETHOBENZAMIDE HCL 200MG/2ML INJ IM PRN (18:39)
[2018-07-15] MEDS: LOPERAMIDE HCL 2 MG CAPSULE PO PRN (20:37)
[2018-07-15] MEDS: THIAMINE HCL 100 MG TABLET (FP) PO SCH (22:13)
[2018-07-15] MEDS: BUDESONIDE/FORMETEROL FUMARATE 160/4.5 mcg INHALER IH SCH (22:14)
[2018-07-15] MEDS: MELATONIN 5 MG TABLETS PO PRN (22:14)
[2018-07-16] MEDS: IBUPROFEN 400 MG TABLET (FP) PO PRN ×2 (04:08→22:25)
[2018-07-16] MEDS: ALBUTEROL SO4 2.5/IPRATROPIUM 0.5 INH SOL 3 ML VIAL.NEB. NEB PRN ×3 (04:16→20:29)
[2018-07-16] MEDS: diazePAM 5 MG TABLET PO PRN ×2 (08:54→22:07)
[2018-07-16] MEDS: PRENATAL VITAMINS W/ FOLIC ACID TABLET (FP) PO SCH (09:34)
[2018-07-16] MEDS: PATIENT'S OWN MEDICATION (NON-FORMULARY) (Bictegrav/Emtricit/Tenofov Ala 1 EACH) PO SCH (09:40)
[2018-07-16] MEDS: BUDESONIDE/FORMETEROL FUMARATE 160/4.5 mcg INHALER IH SCH ×2 (09:40→21:38)
[2018-07-16] MEDS ORDERED: METHADONE HCL 10 MG TABLET (FOR DETOX USE ONLY) PO ONE (10:00)
[2018-07-16] MEDS ORDERED: AZITHROMYCIN 250 MG TABLET PO ONE (10:00)
[2018-07-16 10:58] LABS: ALK PHOS 115 U/L (45-117); ANION GAP 8 MMOL/L (8-16); BILIRUBIN,TOTAL 0.3 mg/dL (0.2-1); BLOOD UREA NITROGEN 10 mg/dL (7-18); CALCIUM 8.2 mg/dL (8.5-10.1); CHLORIDE 102 mmol/L (98-107); CO2 30 mmol/L (21-32); CREATININE 0.7 mg/dL (0.55-1.3); GLUCOSE,RANDOM 178 mg/dL (74-106); HEMATOCRIT 36.6 % (35.4-49); HEMOGLOBIN 12.1 GM/dL (11.7-16.9); MCH 27.5 pg (25.7-33.7); MEAN CELL VOLUME 83.4 fl (80-96); MEAN PLT VOLUME 8.3 fl (7.5-11.1); PLATELET COUNT 247 K/MM3 (134-434); POTASSIUM 3.5 mmol/L (3.5-5.1); RBC 4.38 M/mm3 (4.00-5.60); RDW 14.7 % (11.9-15.9); SGOT/AST 33 U/L (15-37); SGPT/ALT 36 U/L (13-61); SODIUM 140 mmol/L (136-145); TOT PROT 6.7 g/dl (6.4-8.2); WHITE BLOOD COUNT 3.9 K/mm3 (4.0-10.0)
--- NOTE | 2018-07-16 11:17 | PN ---
BHS COWS - Scale Resting Pulse: 0= [place] 80 or Below Sweatin= Chills/Flushing Restless Observation: 0= Sits Still Pupil Size: 1= Pupils >than Normal Bone or Joint Aches: 1= Mild Discomfort Runny Nose/ Eye Tearin= Nasal Congestion GI Upset > 30mins: 1= Stomach Cramp Tremor Observation of Outstretched Hands: 1= Tremor [place], Not Seen Yawning Observation: 2= >3x During Session Anxiety or Irritability: 2=Irritable/Anxious Goose Flesh Skin: 0=Smooth Skin COWS Score: 10 BHS Progress Note (SOAP) Subjective: body aches joints pain tremor sweating asthma episode wheezing coughing tightness of chest muscle Objective: 07/16/18 11:18 Vital Signs Temperature 97.2 F L 07/16/18 09:21 Pulse Rate 58 L 07/16/18 09:21 Respiratory Rate 18 07/16/18 09:21 Blood Pressure 106/65 07/16/18 09:21 O2 Sat by Pulse Oximetry (%) Laboratory Last Values WBC 3.9 K/mm3 (4.0-10.0) L 07/16/18 07:00 RBC 4.38 M/mm3 (4.00-5.60) 07/16/18 07:00 Hgb 12.1 GM/dL (11.7-16.9) 07/16/18 07:00 Hct 36.6 % (35.4-49) 07/16/18 07:00 MCV 83.4 fl (80-96) 07/16/18 07:00 MCH 27.5 pg (25.7-33.7) 07/16/18 07:00 MCHC 33.0 g/dl (32.0-35.9) 07/16/18 07:00 RDW 14.7 % (11.9-15.9) D 07/16/18 07:00 Plt Count 247 K/MM3 (134-434) D 07/16/18 07:00 MPV 8.3 fl (7.5-11.1) 07/16/18 07:00 Sodium 140 mmol/L (136-145) 07/16/18 07:00 Potassium 3.5 mmol/L (3.5-5.1) 07/16/18 07:00 Chloride 102 mmol/L (98-107) 07/16/18 07:00 Carbon Dioxide 30 mmol/L (21-32) 07/16/18 07:00 Anion Gap 8 MMOL/L (8-16) 07/16/18 07:00 BUN 10 mg/dL (7-18) 07/16/18 07:00 Creatinine 0.7 mg/dL (0.55-1.3) 07/16/18 07:00 Creat Clearance w eGFR > 60 (>60) 07/16/18 07:00 Random Glucose 178 mg/dL (74-106) H 07/16/18 07:00 Calcium 8.2 mg/dL (8.5-10.1) L 07/16/18 07:00 Total Bilirubin 0.3 mg/dL (0.2-1) 07/16/18 07:00 AST 33 U/L (15-37) 07/16/18 07:00 ALT 36 U/L (13-61) 07/16/18 07:00 Alkaline Phosphatase 115 U/L (45-117) 07/16/18 07:00 Total Protein 6.7 g/dl (6.4-8.2) 07/16/18 07:00 Albumin 3.0 g/dl (3.4-5.0) L 07/16/18 07:00 lab noted Assessment: 07/16/18 11:19 opiate withdrawal sx asthma Plan: continue detox prednison 20 mg po x 5 days azithromycin pack x 1
[2018-07-16] MEDS: predniSONE 20 MG TABLET (UD) PO SCH (13:42)
[2018-07-16] MEDS: ALBUTEROL SO4 8 GM HFA INHALER IH PRN (21:38)
[2018-07-16] MEDS: guaiFENesin/D-METHORPHAN HB 10 ML UNIT-DOSE CUPS PO PRN (21:39)
[2018-07-16] MEDS: THIAMINE HCL 100 MG TABLET (FP) PO SCH (22:08)
[2018-07-16] MEDS: MELATONIN 5 MG TABLETS PO PRN (22:26)
[2018-07-17] MEDS: BUDESONIDE/FORMETEROL FUMARATE 160/4.5 mcg INHALER IH SCH ×2 (09:10→22:40)
[2018-07-17] MEDS: PATIENT'S OWN MEDICATION (NON-FORMULARY) (Bictegrav/Emtricit/Tenofov Ala 1 EACH) PO SCH (09:11)
[2018-07-17] MEDS: PRENATAL VITAMINS W/ FOLIC ACID TABLET (FP) PO SCH (09:11)
[2018-07-17] MEDS: predniSONE 20 MG TABLET (UD) PO SCH (09:11)
[2018-07-17] MEDS: AZITHROMYCIN 250 MG TABLET PO SCH (09:11)
[2018-07-17] MEDS: diazePAM 5 MG TABLET PO PRN ×2 (09:12→18:17)
[2018-07-17] MEDS: ALBUTEROL SO4 2.5/IPRATROPIUM 0.5 INH SOL 3 ML VIAL.NEB. NEB PRN ×2 (09:13→18:10)
[2018-07-17] MEDS: TRIMETHOBENZAMIDE HCL 200MG/2ML INJ IM PRN ×2 (09:23→23:10)
[2018-07-17] MEDS ORDERED: METHADONE HCL 5 MG TABLET (FOR DETOX USE ONLY) PO ONE (10:00)
--- NOTE | 2018-07-17 15:21 | PN ---
BHS COWS - Scale Resting Pulse: 0= [place] 80 or Below Sweatin= Chills/Flushing Restless Observation: 0= Sits Still Pupil Size: 1= Pupils >than Normal Bone or Joint Aches: 2= Severe Diffuse Aches Runny Nose/ Eye Tearin= Nasal Congestion GI Upset > 30mins: 1= Stomach Cramp Tremor Observation of Outstretched Hands: 1= Tremor [place], Not Seen Yawning Observation: 1= 1-2x During Session Anxiety or Irritability: 1=Feels Anxious/Irritable Goose Flesh Skin: 0=Smooth Skin COWS Score: 9 S Progress Note (SOAP) Subjective: back pain joints stiffness tremor sweating Objective: 07/17/18 15:23 Laboratory Last Values Vital Signs Temperature 97.1 F L 07/17/18 13:43 Pulse Rate 93 H 07/17/18 13:43 Respiratory Rate 20 07/17/18 13:43 Blood Pressure 144/72 07/17/18 13:43 O2 Sat by Pulse Oximetry (%) 96 07/17/18 09:43 WBC 3.9 K/mm3 (4.0-10.0) L 07/16/18 07:00 RBC 4.38 M/mm3 (4.00-5.60) 07/16/18 07:00 Hgb 12.1 GM/dL (11.7-16.9) 07/16/18 07:00 Hct 36.6 % (35.4-49) 07/16/18 07:00 MCV 83.4 fl (80-96) 07/16/18 07:00 MCH 27.5 pg (25.7-33.7) 07/16/18 07:00 MCHC 33.0 g/dl (32.0-35.9) 07/16/18 07:00 RDW 14.7 % (11.9-15.9) D 07/16/18 07:00 Plt Count 247 K/MM3 (134-434) D 07/16/18 07:00 MPV 8.3 fl (7.5-11.1) 07/16/18 07:00 Sodium 140 mmol/L (136-145) 07/16/18 07:00 Potassium 3.5 mmol/L (3.5-5.1) 07/16/18 07:00 Chloride 102 mmol/L (98-107) 07/16/18 07:00 Carbon Dioxide 30 mmol/L (21-32) 07/16/18 07:00 Anion Gap 8 MMOL/L (8-16) 07/16/18 07:00 BUN 10 mg/dL (7-18) 07/16/18 07:00 Creatinine 0.7 mg/dL (0.55-1.3) 07/16/18 07:00 Creat Clearance w eGFR > 60 (>60) 07/16/18 07:00 Random Glucose 178 mg/dL (74-106) H 07/16/18 07:00 Calcium 8.2 mg/dL (8.5-10.1) L 07/16/18 07:00 Total Bilirubin 0.3 mg/dL (0.2-1) 07/16/18 07:00 AST 33 U/L (15-37) 07/16/18 07:00 ALT 36 U/L (13-61) 07/16/18 07:00 Alkaline Phosphatase 115 U/L (45-117) 07/16/18 07:00 Total Protein 6.7 g/dl (6.4-8.2) 07/16/18 07:00 Albumin 3.0 g/dl (3.4-5.0) L 07/16/18 07:00 RPR Titer Nonreactive (NONREACTIVE) 07/16/18 07:00 Laboratory Last Values lab noted Assessment: 07/17/18 15:24 opiate withdrawal sx 07/17/18 15:24 Plan: continue detox
[2018-07-17] MEDS: THIAMINE HCL 100 MG TABLET (FP) PO SCH (22:38)
[2018-07-17] MEDS: MELATONIN 5 MG TABLETS PO PRN (22:39)
[2018-07-17] MEDS: guaiFENesin/D-METHORPHAN HB 10 ML UNIT-DOSE CUPS PO PRN (22:40)
[2018-07-17] MEDS: ALBUTEROL SO4 8 GM HFA INHALER IH PRN (22:41)
[2018-07-18] MEDS: diazePAM 5 MG TABLET PO PRN (08:26)
[2018-07-18] MEDS: ALBUTEROL SO4 2.5/IPRATROPIUM 0.5 INH SOL 3 ML VIAL.NEB. NEB PRN (08:51)
[2018-07-18] MEDS: BUDESONIDE/FORMETEROL FUMARATE 160/4.5 mcg INHALER IH SCH ×2 (09:12→22:31)
[2018-07-18] MEDS: predniSONE 20 MG TABLET (UD) PO SCH (09:12)
[2018-07-18] MEDS: PATIENT'S OWN MEDICATION (NON-FORMULARY) (Bictegrav/Emtricit/Tenofov Ala 1 EACH) PO SCH (09:12)
[2018-07-18] MEDS: AZITHROMYCIN 250 MG TABLET PO SCH (09:12)
[2018-07-18] MEDS: PRENATAL VITAMINS W/ FOLIC ACID TABLET (FP) PO SCH (09:13)
[2018-07-18] MEDS ORDERED: METHADONE HCL 5 MG TABLET (FOR DETOX USE ONLY) PO ONE (10:00)
[2018-07-18] MEDS: ALBUTEROL SO4 8 GM HFA INHALER IH PRN ×2 (12:43→22:31)
[2018-07-18] MEDS ORDERED: predniSONE 20 MG TABLET (UD) PO ONE (12:49)
--- NOTE | 2018-07-18 13:01 | PN ---
BHS COWS - Scale Resting Pulse: 0= [place] 80 or Below Sweatin= Chills/Flushing Restless Observation: 0= Sits Still Pupil Size: 0= Normal to Room Light Bone or Joint Aches: 1= Mild Discomfort Runny Nose/ Eye Tearin= Nasal Congestion GI Upset > 30mins: 1= Stomach Cramp Tremor Observation of Outstretched Hands: 1= Tremor [place], Not Seen Yawning Observation: 1= 1-2x During Session Anxiety or Irritability: 1=Feels Anxious/Irritable Goose Flesh Skin: 0=Smooth Skin COWS Score: 7 BHS Progress Note (SOAP) Subjective: body ache joints stiffness tremor sweating asthma episode x 2 today tightness of chest muscle wheezing nebulizer around 8 am with good result around 1 pm patient experiencing shortness of breath increasing prednison to 40 mg total today and 30 tomorrow then 20 mg daily patient reported that he was discharged from the medical unit admitted to detox from opiate with valium [facility] teaching on benzo effect on respiratory system Objective: 07/18/18 13:13 Vital Signs Temperature 98.5 F 07/18/18 12:40 Pulse Rate 106 H 07/18/18 12:40 Respiratory Rate 18 07/18/18 12:40 Blood Pressure 149/79 07/18/18 12:40 O2 Sat by Pulse Oximetry (%) 96 07/17/18 09:43 Laboratory Last Values WBC 3.9 K/mm3 (4.0-10.0) L 07/16/18 07:00 RBC 4.38 M/mm3 (4.00-5.60) 07/16/18 07:00 Hgb 12.1 GM/dL (11.7-16.9) 07/16/18 07:00 Hct 36.6 % (35.4-49) 07/16/18 07:00 MCV 83.4 fl (80-96) 07/16/18 07:00 MCH 27.5 pg (25.7-33.7) 07/16/18 07:00 MCHC 33.0 g/dl (32.0-35.9) 07/16/18 07:00 RDW 14.7 % (11.9-15.9) D 07/16/18 07:00 Plt Count 247 K/MM3 (134-434) D 07/16/18 07:00 MPV 8.3 fl (7.5-11.1) 07/16/18 07:00 Sodium 140 mmol/L (136-145) 07/16/18 07:00 Potassium 3.5 mmol/L (3.5-5.1) 07/16/18 07:00 Chloride 102 mmol/L (98-107) 07/16/18 07:00 Carbon Dioxide 30 mmol/L (21-32) 07/16/18 07:00 Anion Gap 8 MMOL/L (8-16) 07/16/18 07:00 BUN 10 mg/dL (7-18) 07/16/18 07:00 Creatinine 0.7 mg/dL (0.55-1.3) 07/16/18 07:00 Creat Clearance w eGFR > 60 (>60) 07/16/18 07:00 Random Glucose 178 mg/dL (74-106) H 07/16/18 07:00 Calcium 8.2 mg/dL (8.5-10.1) L 07/16/18 07:00 Total Bilirubin 0.3 mg/dL (0.2-1) 07/16/18 07:00 AST 33 U/L (15-37) 07/16/18 07:00 ALT 36 U/L (13-61) 07/16/18 07:00 Alkaline Phosphatase 115 U/L (45-117) 07/16/18 07:00 Total Protein 6.7 g/dl (6.4-8.2) 07/16/18 07:00 Albumin 3.0 g/dl (3.4-5.0) L 07/16/18 07:00 RPR Titer Nonreactive (NONREACTIVE) 07/16/18 07:00 lab noted Assessment: 07/18/18 13:13 withdrawal sx Plan: continue detox
[2018-07-18] MEDS: LOPERAMIDE HCL 2 MG CAPSULE PO PRN (17:05)
[2018-07-18] MEDS: TRIMETHOBENZAMIDE HCL 200MG/2ML INJ IM PRN (17:06)
[2018-07-18] MEDS: THIAMINE HCL 100 MG TABLET (FP) PO SCH (22:32)
[2018-07-18] MEDS: MELATONIN 5 MG TABLETS PO PRN (22:32)
[2018-07-18] MEDS: guaiFENesin/D-METHORPHAN HB 10 ML UNIT-DOSE CUPS PO PRN (22:33)
[2018-07-19] MEDS ORDERED: METHADONE HCL 5 MG TABLET (FOR DETOX USE ONLY) PO ONE (09:35)
[2018-07-19 09:40] VITALS: BP 119/76; PULSE 82; TEMP 96.5
[2018-07-19] MEDS ORDERED: predniSONE 10 MG TABLET (UD) PO ONE (10:00)
[2018-07-19] MEDS ORDERED: METHADONE HCL 10 MG TABLET (FOR DETOX USE ONLY) PO ONE (10:00)
[2018-07-19] MEDS: PATIENT'S OWN MEDICATION (NON-FORMULARY) (Bictegrav/Emtricit/Tenofov Ala 1 EACH) PO SCH (10:20)
[2018-07-19] MEDS: PRENATAL VITAMINS W/ FOLIC ACID TABLET (FP) PO SCH (10:20)
[2018-07-19] MEDS: BUDESONIDE/FORMETEROL FUMARATE 160/4.5 mcg INHALER IH SCH (10:20)
[2018-07-19] MEDS: AZITHROMYCIN 250 MG TABLET PO SCH (10:20)
[2018-07-20] MEDS ORDERED: METHADONE HCL 5 MG TABLET (FOR DETOX USE ONLY) PO ONE (06:00)
[2018-07-20] MEDS ORDERED: predniSONE 20 MG TABLET (UD) PO SCH (10:00)
--- NOTE | 2018-07-21 19:13 | PN ---
S Progress Note (SOAP) Subjective: Patient denies current Withdrawal / Detox symptoms and reports that he feels well overall. Objective: PATIENT A & O X 3, OBSERVED AMBULATING ON UNIT. IN NO ACUTE DISTRESS. Vital Signs Temperature 96.5 F L 07/19/18 09:39 Pulse Rate 82 07/19/18 09:39 Respiratory Rate 18 07/19/18 09:39 Blood Pressure 119/76 07/19/18 09:39 O2 Sat by Pulse Oximetry (%) 96 07/17/18 09:43 Laboratory Tests 07/16/18 07/16/18 07/16/18 07:00 07:00 07:00 WBC 3.9 L RBC 4.38 Hgb 12.1 Hct 36.6 MCV 83.4 MCH 27.5 MCHC 33.0 RDW 14.7 D Plt Count 247 D MPV 8.3 Sodium 140 Potassium 3.5 Chloride 102 Carbon Dioxide 30 Anion Gap 8 BUN 10 Creatinine 0.7 Creat Clearance w eGFR > 60 Random Glucose 178 H Calcium 8.2 L Total Bilirubin 0.3 AST 33 ALT 36 Alkaline Phosphatase 115 Total Protein 6.7 Albumin 3.0 L RPR Titer Nonreactive LABS NOTED. 07/21/18 19:09 Assessment: 07/21/18 19:10 COMPLETION OF DETOX REGIMEN. Plan: SINCE PATIENT DENIES CURRENT WITHDRAWAL / DETOX SYMPTOMS AND REPORTS THAT HE FEELS WELL OVERALL, AT PATIENT'S REQUEST, HE WAS GRANTED AN EARLY DISCHARGE FROM DETOX UNIT SO THAT HE MAY ATTEND TO SOME PERSONAL AFFAIRS PRIOR TO GOING TO ADMISSION TO '[facility]' ([place], [place]), WHICH HE WILL GO TO IN THE NEXT FEW DAYS.
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
== END 2018-07-19 10:27 | disposition home or self-care (01) | DRG 897 ==
LOC: YASAS 12:47 → Y3N 16:46
PROVIDERS: ADMIT Surgery; ATTEND Surgery
PROC: HZ2ZZZZ Detoxification Services for Substance Abuse Treatment (ICD-10-PCS; principal; 2018-07-15)
DX: F11.23 Opioid dependence with withdrawal (principal); F14.20 Cocaine dependence, uncomplicated; F17.210 Nicotine dependence, cigarettes, uncomplicated; Z21 Asymptomatic human immunodeficiency virus [HIV] infection status; J45.909 Unspecified asthma, uncomplicated; M62.531 Muscle wasting and atrophy, not elsewhere classified, right forearm; M62.541 Muscle wasting and atrophy, not elsewhere classified, right hand; Z88.1 Allergy status to other antibiotic agents
CPT/HCPCS: 36415; 80053; 85027; 86593; 94640